=== PATIENT | male | born 1985 | race Caucasian/White ===

== ENCOUNTER → 2020-11-19 08:01 | Outpatient (BNVA) | payer SELFPAY | PROVIDERS: PCP Internal Medicine | DX: R76.11 Nonspecific reaction to tuberculin skin test without active tuberculosis (principal) ==

== ENCOUNTER 2020-12-29 10:18 | Outpatient (REF) | payer BC, SELFPAY ==
[2020-12-29 10:21] LABS: MANUAL DIFF FLAG NO
[2020-12-29 11:09] LABS: Basophils Percent Auto 0.9 % (0-2); Eosinophils Absolute Auto 0.1 X10*3/uL (0.0-0.4); Eosinophils Percent Auto 1.3 % (0-4); Hematocrit 43.1 % (42-52); Hemoglobin 14.2 g/dl (14.0-18.0); Lymphocytes Absolute Auto 1.5 X10*3/uL (1.2-4.9); Lymphocytes Percent Auto 31.5 % (20-40); Mean Corpuscular HGB Conc 32.9 g/dl (31.0-36.0); Mean Corpuscular Hemoglobin 28.8 pg (27.0-33.0); Mean Corpuscular Volume 87.4 fL (80-98); Mean Platelet Volume 8.9 fL (9.4-12.4); Monocytes Absolute Auto 0.4 X10*3/uL (0.1-1.2); Monocytes Percent Auto 9.1 % (2-11); Neutrophils Absolute Auto 2.7 X10*3/uL (2.0-8.3); Neutrophils Percent Auto 57.2 % (45-73); Platelet Count 275 X10*3/uL (160-400); Red Blood Count 4.93 X10*6/uL (4.60-5.80); Red Cell Distribution Width 12.7 % (11.0-16.0); White Blood Count 4.6 X10*3/uL (4.8-10.8)
[2020-12-29 11:34] LABS: Alanine Aminotransferase 17 U/L (0-40); Albumin Level 4.6 g/dL (3.5-5.0); Alkaline Phosphatase 47 U/L (39-117); Anion Gap 14 (12-20); Aspartate Amino Transferase 17 U/L (5-37); Bilirubin Total 0.9 mg/dL (0.0-1.0); Blood Urea Nitrogen 13 mg/dL (9-16); Calcium 9.9 mg/dL (8.4-10.2); Carbon Dioxide 28 mmol/L (22-29); Chloride 103 mmol/L (96-108); Cholesterol 154 mg/dL; Estimated Glomerular Filt Rate > 60; Glucose Fasting 78 mg/dL (60-99); HDL Cholesterol 56 mg/dL; LDL Cholesterol Calculated 85 mg/dl; Potassium 3.9 mmol/L (3.3-5.1); Sodium 141 mmol/L (135-145); Triglycerides 65 mg/dL
== END 2020-12-29 10:19 | disposition home or self-care (01) ==
LOC: HO.LNP 10:18
PROVIDERS: Visit Provider Internal Medicine
DX: Z00.00 Encounter for general adult medical examination without abnormal findings (principal)
CPT/HCPCS: 80053; 80061; 85025

== ENCOUNTER 2021-01-01 10:53 | Outpatient (REF) | payer BC, SELFPAY ==
[2021-01-01 11:53] LABS: Appearance Urine CLEAR; Color Urine YELLOW; Glucose Urine UA NEG (NEG); Leukocyte Esterase Urine NEG (NEG); Nitrite Urine NEG (NEG); PH 7.5 (5.0-8.0); Urine Blood NEG (NEG); Urine Ketones NEG (NEG); Urine Protein NEG (NEG-TRACE)
== END 2021-01-01 10:54 | disposition home or self-care (01) ==
LOC: HO.LNP 10:53
PROVIDERS: Visit Provider Internal Medicine
DX: Z00.00 Encounter for general adult medical examination without abnormal findings (principal)
CPT/HCPCS: 81003

== ENCOUNTER 2021-12-31 10:29 | Outpatient (REF) | payer BC, SELFPAY ==
[2021-12-31 10:33] LABS: MANUAL DIFF FLAG NO
[2021-12-31 11:52] LABS: Basophils Absolute Auto 0.1 X10*3/uL (0.0-0.2); Basophils Percent Auto 1.1 % (0-2); Eosinophils Absolute Auto 0.1 X10*3/uL (0.0-0.4); Eosinophils Percent Auto 2.1 % (0-4); Hematocrit 44.1 % (42.0-52.0); Hemoglobin 14.6 g/dl (14.0-18.0); Imm Gran Abs Auto 0.01 X10*3/uL (0.00-0.03); Imm Gran Pct Auto 0.2 % (0.0-0.4); Lymphocytes Absolute Auto 1.5 X10*3/uL (1.2-4.9); Lymphocytes Percent Auto 35.3 % (20-40); Mean Corpuscular HGB Conc 33.1 g/dl (31.0-36.0); Mean Corpuscular Hemoglobin 28.9 pg (27.0-33.0); Mean Corpuscular Volume 87.3 fL (80.0-98.0); Mean Platelet Volume 9.3 fL (9.4-12.4); Monocytes Absolute Auto 0.5 X10*3/uL (0.1-1.2); Monocytes Percent Auto 10.8 % (2-11); Neutrophils Absolute Auto 2.2 x10*3/uL (2.0-8.3); Neutrophils Percent Auto 50.5 % (45-73); Platelet Count 272 X10*3/uL (160-400); Red Blood Count 5.05 X10*6/uL (4.60-5.80); Red Cell Distribution Width 12.4 % (11.0-16.0); White Blood Count 4.4 X10*3/uL (4.8-10.8)
[2021-12-31 12:05] LABS: Alanine Aminotransferase 14 U/L (0-40); Albumin Level 4.8 g/dL (3.5-5.0); Alkaline Phosphatase 54 U/L (39-117); Anion Gap 16 (12-20); Aspartate Amino Transferase 18 U/L (5-37); Bilirubin Total 0.6 mg/dL (0.0-1.0); Blood Urea Nitrogen 20 mg/dL (9-16); Calcium 9.6 mg/dL (8.4-10.2); Carbon Dioxide 28 mmol/L (22-29); Chloride 103 mmol/L (96-108); Cholesterol 171 mg/dL; Estimated Glomerular Filt Rate > 60; Glucose Fasting 85 mg/dL (60-99); HDL Cholesterol 60 mg/dL; LDL Cholesterol Calculated 101 mg/dl; Potassium 4.9 mmol/L (3.3-5.1); Sodium 142 mmol/L (135-145); Total Protein 7.2 g/dL (6.5-8.0); Triglycerides 52 mg/dL
== END 2021-12-31 10:30 | disposition home or self-care (01) ==
LOC: HO.LNP 10:29
PROVIDERS: Visit Provider Internal Medicine
DX: Z00.00 Encounter for general adult medical examination without abnormal findings (principal)
CPT/HCPCS: 80053; 80061; 85025

== ENCOUNTER 2022-01-07 11:41 | Outpatient (REF) | payer BC, SELFPAY ==
[2022-01-07 12:17] LABS: Appearance Urine Clear; Color Urine Yellow; Glucose Urine UA Negative (Negative); Leukocyte Esterase Urine Negative (Negative); Nitrite Urine Negative (Negative); Specific Gravity - Urine 1.015 (1.005-1.025); Urine Blood Negative (Negative); Urine Ketones Negative (Negative); Urine Protein Negative (Neg-Trace)
[2022-01-07 12:20] LABS: Bacteria Urine None Seen (None Seen); Hyaline Casts Urine 0-2 /LPF (0-2); RBC Urine 0-2 /HPF (0-2); Squamous Epithelial Cell Urine 0-2 /HPF (0-2); WBC Urine 0-5 /HPF (0-5)
== END 2022-01-07 11:42 | disposition home or self-care (01) ==
LOC: HO.LNP 11:41
PROVIDERS: Visit Provider Internal Medicine
DX: Z00.00 Encounter for general adult medical examination without abnormal findings (principal)
CPT/HCPCS: 81001

== ENCOUNTER 2023-01-04 10:45 | Outpatient (REF) | payer OTHER, SELFPAY ==
[2023-01-04 10:51] LABS: MANUAL DIFF FLAG NO
[2023-01-04 11:17] LABS: Basophils Absolute Auto 0.1 X10*3/uL (0.0-0.2); Basophils Percent Auto 1.1 % (0-2); Eosinophils Absolute Auto 0.1 X10*3/uL (0.0-0.4); Hematocrit 43.1 % (42.0-52.0); Hemoglobin 14.2 g/dl (14.0-18.0); Lymphocytes Absolute Auto 1.6 X10*3/uL (1.2-4.9); Lymphocytes Percent Auto 35.1 % (20-40); Mean Corpuscular HGB Conc 32.9 g/dl (31.0-36.0); Mean Corpuscular Hemoglobin 29.3 pg (27.0-33.0); Mean Platelet Volume 9.4 fL (9.4-12.4); Monocytes Absolute Auto 0.4 X10*3/uL (0.1-1.2); Neutrophils Absolute Auto 2.4 x10*3/uL (2.0-8.3); Neutrophils Percent Auto 52.8 % (45-73); Platelet Count 283 X10*3/uL (160-400); Red Blood Count 4.84 X10*6/uL (4.60-5.80); Red Cell Distribution Width 12.7 % (11.0-16.0); White Blood Count 4.6 X10*3/uL (4.8-10.8)
[2023-01-04 11:36] LABS: Alanine Aminotransferase 19 U/L (0-40); Albumin Level 4.4 g/dL (3.5-5.0); Alkaline Phosphatase 47 U/L (39-117); Anion Gap 13 (12-20); Aspartate Amino Transferase 20 U/L (5-37); Bilirubin Total 0.5 mg/dL (0.0-1.0); Blood Urea Nitrogen 18 mg/dL (9-16); Calcium 9.5 mg/dL (8.4-10.2); Carbon Dioxide 27 mmol/L (22-29); Chloride 104 mmol/L (96-108); Cholesterol 188 mg/dL (<200); Estimated Glomerular Filt Rate > 60; Glucose Fasting 86 mg/dL (60-99); HDL Cholesterol 69 mg/dL (>40); LDL Cholesterol Calculated 109 mg/dL (<100); Potassium 4.2 mmol/L (3.3-5.1); Sodium 140 mmol/L (135-145); Triglycerides 54 mg/dL (<150)
== END 2023-01-04 10:46 | disposition home or self-care (01) ==
LOC: HO.LNP 10:45
PROVIDERS: Visit Provider Internal Medicine
DX: Z00.00 Encounter for general adult medical examination without abnormal findings (principal)
CPT/HCPCS: 80053; 80061; 85025

== ENCOUNTER 2023-01-11 11:28 | Outpatient (REF) | payer OTHER, SELFPAY ==
[2023-01-11 11:46] LABS: Appearance Urine Clear; Color Urine Yellow; Glucose Urine UA Negative (Negative); Leukocyte Esterase Urine Negative (Negative); Nitrite Urine Negative (Negative); PH 6.5 (5.0-9.0); Urine Blood Negative (Negative); Urine Ketones Negative (Negative); Urine Protein Negative (Neg-Trace)
== END 2023-01-11 11:29 | disposition home or self-care (01) ==
LOC: HO.LNP 11:28
PROVIDERS: Visit Provider Internal Medicine
DX: Z00.00 Encounter for general adult medical examination without abnormal findings (principal)
CPT/HCPCS: 81003

== ENCOUNTER 2024-01-09 11:58 | Outpatient (REF) | payer OTHER, SELFPAY ==
[2024-01-09 12:05] LABS: MANUAL DIFF FLAG NO
[2024-01-09 12:14] LABS: Basophils Percent Auto 0.7 % (0-2); Eosinophils Absolute Auto 0.2 X10*3/uL (0.0-0.4); Eosinophils Percent Auto 3.4 % (0-4); Hematocrit 44.2 % (42.0-52.0); Hemoglobin 14.6 g/dl (14.0-18.0); Imm Gran Abs Auto 0.01 X10*3/uL (0.00-0.03); Imm Gran Pct Auto 0.2 % (0.0-0.4); Lymphocytes Absolute Auto 1.8 X10*3/uL (1.2-4.9); Lymphocytes Percent Auto 40.9 % (20-40); Mean Corpuscular Hemoglobin 29.4 pg (27.0-33.0); Mean Corpuscular Volume 89.1 fL (80.0-98.0); Monocytes Absolute Auto 0.5 X10*3/uL (0.1-1.2); Monocytes Percent Auto 10.8 % (2-11); Platelet Count 254 X10*3/uL (160-400); Red Blood Count 4.96 X10*6/uL (4.60-5.80); Red Cell Distribution Width 12.5 % (11.0-16.0); White Blood Count 4.4 X10*3/uL (4.8-10.8)
[2024-01-09 12:30] LABS: Alanine Aminotransferase 25 U/L (0-40); Albumin Level 4.4 g/dL (3.5-5.0); Alkaline Phosphatase 54 U/L (39-117); Anion Gap 11 (12-20); Aspartate Amino Transferase 31 U/L (5-37); Bilirubin Total 0.7 mg/dL (0.0-1.0); Blood Urea Nitrogen 18 mg/dL (9-16); Calcium 9.7 mg/dL (8.4-10.2); Carbon Dioxide 27 mmol/L (22-29); Chloride 103 mmol/L (96-108); Cholesterol 171 mg/dL (<200); Estimated Glomerular Filt Rate > 60; Glucose Fasting 80 mg/dL (60-99); HDL Cholesterol 68 mg/dL (>40); LDL Cholesterol Calculated 94 mg/dL (<100); Potassium 4.3 mmol/L (3.3-5.1); Sodium 137 mmol/L (135-145); Triglycerides 48 mg/dL (<150)
== END 2024-01-09 11:59 | disposition home or self-care (01) ==
LOC: HO.LNP 11:58
PROVIDERS: Visit Provider Internal Medicine
DX: Z00.00 Encounter for general adult medical examination without abnormal findings (principal)
CPT/HCPCS: 80053; 80061; 85025

== ENCOUNTER 2024-01-16 11:23 | Outpatient (REF) | payer OTHER, SELFPAY ==
[2024-01-16 11:56] LABS: Appearance Urine Clear; Color Urine Yellow; Glucose Urine UA Negative (Negative); Leukocyte Esterase Urine Negative (Negative); Nitrite Urine Negative (Negative); Specific Gravity - Urine 1.025 (1.005-1.025); Urine Blood Negative (Negative); Urine Ketones Negative (Negative); Urine Protein Negative (Neg-Trace)
[2024-01-16 12:01] LABS: Bacteria Urine None Seen (None Seen); Hyaline Casts Urine 0-2 /LPF (0-2); RBC Urine 0-2 /HPF (0-2); Squamous Epithelial Cell Urine 0-2 /HPF (0-2); WBC Urine 0-5 /HPF (0-5)
== END 2024-01-16 11:24 | disposition home or self-care (01) ==
LOC: HO.LNP 11:23
PROVIDERS: Visit Provider Internal Medicine
DX: Z00.00 Encounter for general adult medical examination without abnormal findings (principal)
CPT/HCPCS: 81001

== ENCOUNTER 2024-08-25 09:45 | Outpatient (REF) | payer OTHER, SELFPAY ==
--- NOTE | ~2024-08-25 | MR_ITS ---
EXAMINATION: MR BRAIN WITHOUT CONTRAST CLINICAL INFORMATION: Weakness. COMPARISON: None available. TECHNIQUE: MRI of the brain was obtained using routine sequences without contrast. FINDINGS: No restricted diffusion. No acute intracranial hemorrhage, mass effect, midline shift, hydrocephalus or herniation. Lawson-white matter differentiation is normal. Posterior cranial fossa contents demonstrated no signal abnormality or gross masses. Flow-void signal within the main cerebral vessels is normal. Sellar/suprasellar region demonstrates no signal abnormality or masses. Craniocervical junction demonstrates normal position of the cerebellar tonsils. MR/MR head/brain wo con IMPRESSION: No acute or structural brain abnormality. Negative exam. Electronically signed by: Nader Waite MD 08/27/2024 08:04 AM EDT
--- OUTSIDE RECORDS SUMMARY | 2024-08-25 09:52 | XMS_ITS ---
Author Organization Fernando Celestin MD Address [address] [place] [phone] Care Team Providers Care Currency 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 Name Role Phone Fernando Celestin Primary Care Provider Allergies No Known Allergies Results Component Value Reference Range Notes UA ClnCatch+Micro w/rflx Cul t Reviewed date:01/16/2024 12:56:20 PM Interpretation: Performing Lab:[facility], [address] [place] [id number] Notes/Report: Urine, Clean Catch Color Urine Yellow Appearance Urine Clear PH 6.0 5.0-9.0 Glucose Urine UA Negative Negative mg/dL Urine Blood Negative Negative Specific [place] - Urine 1.025 1.005-1.025 Urine Protein Negative [...] stomach Orally Twice a day Not-Taking Nystatin 403959 UNIT/GM 1 application Ex ternally Twice a [...] Location Date Provider Diagnosis Fernando Celestin MD [address] [place] [address] [place] [phone] 01/16/2024 Fernando Celestin Annual physical exam Z00.00 [...] (ICD-10 - H02.402) referral to neurologist in [place]. 01/16/2024 Obsessive-compul sive personality disorder (ICD-10 - [...] Ptosis, left referral to neurolog ist in [place]. Obsessive-compulsive personality disorde r stable Dysthymia doing well, will con tinue current regimnt Depression screening mild depression, do ing well Other irritable bowel syndrome stable, w ill continue current regiment Referrals Referral Date Details 01/16/2024 01/16/2024, H02.402 Ptosis left, CASTRO KIRK Next Appt Details Provider Name:Fernando cardoso, 01/11/2025 07:45:00 AM, [address] [place] [address], [address], [place], [place], [phone], Provider Name:Fernando cardoso, 01/18/2025 09:30:00 AM, [address] [place] [address], [address], [place], [place], [phone], Progress Notes * Norm HONEYCUTTDOB: [birth year] (39 yo M)Acc No.[id number]:01/16/2024 Progress Notes Patient:?Tangela Norm Provider:?Fernando Celestin MD :1985???Age:38 Y???Sex:Male Ryan e:01/16/2024 Address:[address] [place] [address], [place]zy [id number] Subjective: * Chief Complaints: * ???Annual visit * HPI: ???Depression Screening:?PHQ-9?Little interest or pleasure in doing things?Not at all,?Feeling down, depressed, or hopeless?More than half the days,?Trouble falling or staying asleep, or sleeping too much?Several days,?Feeling tired or having little energy?Not at all,?Poor appetite or overeating?Not at all,?Feeling bad about yourself or that you are a failure, or have let yourself or your family down?More than half the days,?Trouble concentrating on things, such as reading the newspaper or watching television?Several days,?Moving or speaking so slowly that other people could have noticed; or the opposite, being so fidgety or restless that you have been moving around a lot more than usual?Not at all,?Thoughts that you would be better off or of hurting yourself in some way?Not at all,?Total Score?6,?Interpretation?Mild Depression.?Interpretation and Intervention?Depression Screening Findings?Positve - Review of PHQ-9 found positive for depression,?Follow-Up for Depression?: Existing condition.? patient is a 38 yo male here for yearly evaluation with review of recent labs and follow up of chronic issues.. has gotten back to working out. has been having ptosis of left eye for one year. doesn't go all the way down. comes and goes. fluctuates. sometimes. ???Communication Needs:?Communication Needs?Does the patient have a hearing impairment?No,?Does the patient have a vision impairment??Yes,?If yes, what is the vision impairment??Contact Lenses,?Does the patient have a cognition impairment??No.?SDOH Questions:?SDOH Questions?In the past year have you been worried about losing housing??No,?In the past year have you or any family members you live with been unable to get any of the following when it was really needed? Check all that apply:?None.? * ROS:?General/Constitutional:?Comments?some pressure in chest when he turns in bed.?.?Change in appetite?denies, denies.?Chills?denies, denies.?Fever?denies, denies.?Ophthalmologic:?Blurred vision?denies, denies.?Discharge?denies, denies.?Pain?denies, denies.?ENT:?Patient denies?decreased sense of smell , any loss of taste , sore throat.?Decreased hearing?denies, denies.?Sore throat?denies, denies.?Swollen glands?denies, denies.?Endocrine:?Cold intolerance?denies, denies.?Excessive thirst?denies, denies.?Heat intolerance?denies, denies.?Weight loss?denies, denies.?Respiratory:?Cough?denies, denies.?Shortness of breath at rest?denies, denies.?Shortness of breath with exertion?denies, denies.?Wheezing?denies, denies.?Cardiovascular:?Chest pain at rest?denies, denies.?Chest pain with exertion?denies, denies.?Irregular heartbeat?denies, denies.?Shortness of breath?denies, denies.?Gastrointestinal:?Abdominal pain?denies, denies.?Change in bowel habits?denies, denies.?Diarrhea?denies, denies.?Nausea?denies, denies.?Rectal bleeding?denies, denies.?Vomiting?denies , denies .?Genitourinary:?Blood in urine?denies, denies.?Difficulty urinating?denies, denies.?Frequent urination?denies, denies.?Musculoskeletal:?Patient denies?muscle aches.?Painful joints?denies, denies.?Weakness?denies, denies.?Peripheral Vascular:?Patient denies?red and blue toes.?Skin:?Dry skin?denies, denies.?Itching?denies, denies.?Denies?Mole(s),? changes in moles, new moles or any lesions of concern, changes in moles, new moles or any lesions of concern.?Denies?Photosensitivity.?Rash?denies, denies.?Neurologic:?Dizziness?denies, denies.?Fainting?denies, denies.?Headache?denies, denies.? * Medical History:? * Surgical History:? * Hospitalization/Major Diagno stic Procedure:? * Family History:?Father: vibha magana 60 yrs, healthy.?Mother: alive 59 yrs, healthy.?2 sister(s) . .? Father-Healthy Mother-Healthy mother suffers with depression no family substance abuse, No pertinent family medical history. * Social History:?Tobacco Use:?Tobacco Use/Smoking?Patient is a?nonsmoker,?Additional Findings: Tobacco Non-User?Current non-smoker, currently using no form of tobacco.?Drugs/Alcohol:?Alcohol Screen?Did you have a drink containing alcohol in the past year??No,?Points?0,?Interpretation?Negative.?Miscellaneous:?Caffeine: yes, frequency:enegy drinks 1 daily. no Children. no Exercise. Home smoke detector use: yes. Housing: renting. Marital status: single. Occupation: weeks/months/years, works part-time. Pets: none. no Travel outside of the [place]. * Medications:?TakingKlonoPIN 1 MG Tablet 1 tablet Orally once [...] in the morning Orally Once a dayNystatin 248567 UNIT/GM Cream 1 application Externally Twice a [...] the morning Orally Once a dayNot-Taking/PRN Nystatin 278153 UNIT/GM Cream 1 application Externally Twice a dayNot-Taking/PRN Ativan 1 MG Tablet 1 tablet at bedtime as needed Orally Once a dayNot-Taking/PRN Ritalin 20 MG Tablet 1 tablet on an empty stomach Orally Twice a dayNot- Taking/PRN Lotrisone 1-0.05 % Cream 1 application to affected area Externally Twice a dayMedication List reviewed and reconciled with the patient * Allergies:?N.K.D.A.yes[Aller gies Verified] Objective: * Vitals:?Ht: 70, Wt:149, BMI: 21.38, BP:92/60. * ???Past Orders: ???Lab:[facility]prehensive [place]. P chuckie Fast (Order Date - 01/09/2024) (Collection Date - 01/09/2024) ? Value Reference Range ?Sodium 137 135-145 - mmo l/L ?Bilirubin Total 0.7 0.0- 1.0 - mg/dL ?Aspartate Amino Transferase 31 5-37 - U/L ?Alanine Aminotransferase 25 0-40 - U/L ?Total Protein 7.0 6.5-8. 0 - g/dL ?Albumin Level 4.4 3.5-5. 0 - g/dL ?Alkaline Phosphatase 54 39-117 - U/L ?Potassium 4.3 3.3-5.1 - mmol/L ?Chloride 103 96-108 - mm ol/L ?Carbon Dioxide 27 22-29 - mmol/L ?Anion Gap 11 L 12-20 - ?Blood Urea Nitrogen 18 H 9-16 - mg/dL ?Creatinine 0.83 0.5-1.4 - mg/dL ?Estimated Glomerular Filt Rate > 60 - ?Glucose Fasting 80 60-9 9 - mg/dL ?Calcium 9.7 8.4-10.2 - m g/dL ???Lab:Lipid Panel (Order Da te - 01/09/2024) (Collection Date - 01/09/2024) ? Value Reference Range ?Triglycerides 48 <150 - mg/dL ?Cholesterol 171 <200 - m g/dL ?LDL Cholesterol Calculated 94 <100 - mg/dL ?HDL Cholesterol 68 >40 - mg/dL ???Lab:Complete Blood Count Auto Diff (Order Date - 01/09/2024) (Collection Date - 01/09/2024) ? Value Reference Range ?White Blood Count 4.4 L 4. 8-10.8 - X10*3/uL ?Red Blood Count 4.96 4.60 -5.80 - X10*6/uL ?Hemoglobin 14.6 14.0-18.0 - g/dl ?Hematocrit 44.2 42.0-52.0 - % ?Mean Corpuscular Volume 89.1 80.0-98.0 - fL ?Mean Corpuscular Hemoglobin 29.4 27.0-33.0 - pg ?Mean Corpuscular HGB Conc 33.0 31.0-36.0 - g/dl ?Red Cell Distribution Width 12.5 11.0-16.0 - % ?Platelet Count 254 160-4 00 - X10*3/uL ?Mean Platelet Volume 9.0 L 9.4-12.4 - fL ?Neutrophils Percent Auto 44.0 L 45-73 - % ?Imm Gran Pct Auto 0.2 0. 0-0.4 - % ?Lymphocytes Percent Auto 40.9 H 20-40 - % ?Monocytes Percent Auto 10.8 2-11 - % ?Eosinophils Percent Auto 3.4 0-4 - % ?Basophils Percent Auto 0.7 0-2 - % ?NRBC Pct Auto 0.0 0.0-0. 2 - /100WBC ?Neutrophils Absolute Auto 2.0 2.0-8.3 - x10*3/uL ?Imm Gran Abs Auto 0.01 0. 00-0.03 - X10*3/uL ?Lymphocytes Absolute Auto 1.8 1.2-4.9 - X10*3/uL ?Monocytes Absolute Auto 0.5 0.1-1.2 - X10*3/uL ?Eosinophils Absolute Auto 0.2 0.0-0.4 - X10*3/uL ?Basophils Absolute Auto 0.0 0.0-0.2 - X10*3/uL ?NRBC Abs Auto 0.000 0.0-0. 012 - X10*3/uL * Examination: ???General Examination: ?GENERAL APPEARANCE:?well developed, well nourished, in no acute distress , well developed, well nourished, in no acute distress.?HEAD:?normocephalic, atraumatic , normocephalic, atraumatic.?EYES:?pupils equal, round, reactive to light and accommodation, sclera non-icteric , pupils equal, round, reactive to light and accommodation, sclera non-icteric.?EARS:?normal , normal.?ORAL CAVITY:?mucosa moist , mucosa moist.?THROAT:?clear , clear.?NECK/THYROID:?neck supple, full range of motion, no cervical lymphadenopathy, no bruits , neck supple, full range of motion, no cervical lymphadenopathy, no bruits.?SKIN:?warm and dry, no suspicious lesions , warm and dry, no suspicious lesions.?HEART:?regular rate and rhythm, S1, S2 normal, no murmurs , regular rate and rhythm, S1, S2 normal, no murmurs.?LUNGS:?clear to auscultation bilaterally , clear to auscultation bilaterally.?ABDOMEN:?soft, nontender, nondistended, bowel sounds present, normal, no organomegaly , no masses palpable , soft, nontender, nondistended, bowel sounds present, normal, no organomegaly , no masses palpable.?RECTAL EXAM:?declined?.?MALE GENITOURINARY:?not examined , not examined.?EXTREMITIES:?no clubbing, cyanosis, or edema , no clubbing, cyanosis, or edema.?NEUROLOGIC:?nonfocal, motor strength normal upper and lower extremities, sensory exam intact , nonfocal, motor strength normal upper and lower extremities, sensory exam intact.? 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 Plan: * Treatment: 2.?Ptosis, left? Notes: referral to neurologist in [place].? Referral To:CASTRO KIRK??Neurology ?Reason:H02.402 Ptosis left 3.?Obsessive-compulsive pers onality disorder? Continue Anafranil Capsule, 25 MG, 2 capsule, Orally, Once a day.?? Notes: stable?? 4.?Dysthymia? Notes: doing well, will continue current regimnt?? 5.?Depression screening? Notes: mild depression, doing well?? 6.?Other irritable bowel syn drome? Notes: stable, will continue current regiment?? * Procedure Codes:? * * Sign off status: Completed true * Provider:?Fernando Celestin MD Date:?1 03/17/2023 Generated for Aliyai ng/Trace/eTransmitting on:?08/25/2024 09:52 AM EDT History and Physical Notes * HPI [...] patient have a vision impairmen t?: Yes ?If yes, what is the vision impairment?: Contact [...] Date Referring Provider Referred Provider Not es 01/16/2024 Fernando Celestin JOHN H02.402 P tosis left
== END 2024-08-25 09:46 | disposition home or self-care (01) ==
LOC: HO.MRI 09:45
PROVIDERS: PCP Internal Medicine; Visit Provider Internal Medicine
DX: M62.81 Muscle weakness (generalized) (principal); H02.402 Unspecified ptosis of left eyelid
CPT/HCPCS: 70551

== ENCOUNTER → 2024-08-25 09:48 | Outpatient (BNV) | payer OTHER, SELFPAY | PROVIDERS: PCP Internal Medicine; Visit Provider Radiology Diagnostic Radiology | DX: R53.1 Weakness (principal) | CPT/HCPCS: 70551 ==

== ENCOUNTER 2024-09-25 15:13 | Outpatient (REF) | payer OTHER, SELFPAY ==
--- OUTSIDE RECORDS SUMMARY | 2024-01-16 06:15 | XMS_ITS ---
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 [employer] Name Role Phone Fernando Celestin Primary Care Provider Allergies No Known Allergies Results Component Value Reference Range Notes UA ClnCatch+Micro w/rflx Cul t Reviewed date:01/16/2024 12:56:20 PM Interpretation: Performing Lab:[facility], [address] [place] [id number] Notes/Report: Urine, Clean Catch Color Urine Yellow Appearance Urine Clear PH 6.0 5.0-9.0 Glucose Urine UA Negative Negative mg/dL Urine Blood Negative Negative Specific [place] - Urine 1.025 1.005-1.025 Urine Protein Negative [...] stomach Orally Twice a day Not-Taking Nystatin 577046 UNIT/GM 1 application Ex ternally Twice a [...] Location Date Provider Diagnosis Fernando Celestin MD [address] [place] [address] [place] [phone] 01/16/2024 Fernando Celestin Annual physical exam Z00.00 [...] (ICD-10 - H02.402) [place]. 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 Obsessive-compulsive personality disorde r stable Dysthymia doing well, will con tinue current regimnt Depression screening mild depression, do ing well Other irritable bowel syndrome stable, w ill continue current regiment Referrals Referral Date Details 01/16/2024 01/16/2024, H02.402 Ptosis left, [facility]STR[facility] KIRK Next Appt Details Provider Name:Fernando cardoso, 01/11/2025 07:45:00 AM, [address] [place] [address], [address], [place], [place], [phone], Provider Name:Fernando cardoso, 01/18/2025 09:30:00 AM, [address] [place] [address], [address], [place], [place], [phone], Progress Notes * Norm HONEYCUTTDOB: [birth year] (39 yo M)Acc No.[id number]:01/16/2024 Progress Notes Patient: Jori feliNorm Provider: Reed Celestin MD :1985 A ge:38 Y S ex:Male Date:01/16/2024 Address:[address] [place] [address], [place] [id number] Subjective: * Chief Complaints: * A nnual [...] in the morning Orally Once a dayNystatin 179344 UNIT/GM Cream 1 application Externally Twice a [...] the morning Orally Once a dayNot-Taking/PRN Nystatin 119613 UNIT/GM Cream 1 application Externally Twice a [...] BP:92/60. * P ast Orders: L ab:Comprehensive [place]. Panel Fast (Order Date - 01/09/2024) (Collection [...] tosis, left Notes: [place] to [place]ist [place]. Referral To:CASTRO KIRK Neurology Reason:H02.402 Ptosis left [...] Date: 03/17/2023 Generated for Radha carbajal/Trace/Hamiltonitting on: 0 09/25/2024 04:24 PM EDT History and Physical Notes * [...]
--- NOTE | ~2024-09-25 | XR_ITS ---
EXAMINATION: XR SHOULDER 2 OR MORE VIEWS RIGHT HISTORY: STRAIN OF MUSCLE COMPARISON: There are no prior studies available for comparison. FINDINGS: Four views of the right shoulder are submitted. Osseous mineralization is normal. There is no fracture or dislocation. The glenohumeral and acromioclavicular joint spaces are preserved. The soft tissues are unremarkable. XR/XR shoulder RT min 2V IMPRESSION: Unremarkable examination of the right shoulder. Electronically signed by: Phillip Webb MD 09/25/2024 03:42 PM EDT
--- NOTE | ~2024-09-25 | XR_ITS ---
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 FINDINGS: AP and lateral views of the thoracic spine are submitted. Osseous mineralization is normal. The vertebral bodies maintain normal height and alignment without evidence of fracture or subluxation. The intervertebral disc spaces are preserved. The visualized paraspinal soft tissues are unremarkable. XR/XR thoracic spine 3V IMPRESSION: Unremarkable examination of the thoracic spine. Electronically signed by: Phillip Webb MD 09/25/2024 03:43 PM EDT
== END 2024-09-25 15:14 | disposition home or self-care (01) ==
LOC: HO.XRAY 15:13
PROVIDERS: PCP Internal Medicine; Visit Provider Nurse Practitioner Women's Health
DX: S46.011D Strain of muscle(s) and tendon(s) of the rotator cuff of right shoulder, subsequent encounter (principal); M47.814 Spondylosis without myelopathy or radiculopathy, thoracic region
CPT/HCPCS: 72072; 73030

== ENCOUNTER → 2024-09-25 15:25 | Outpatient (BNV) | payer OTHER, SELFPAY | PROVIDERS: PCP Internal Medicine; Visit Provider Radiology Diagnostic Radiology | DX: M47.814 Spondylosis without myelopathy or radiculopathy, thoracic region (principal); S46.011A Strain of muscle(s) and tendon(s) of the rotator cuff of right shoulder, initial encounter | CPT/HCPCS: 72072; 73030 ==

== ENCOUNTER 2025-01-11 10:49 | Outpatient (REF) | payer OTHER, SELFPAY ==
--- OUTSIDE RECORDS SUMMARY | 2024-01-09 04:00 | XMS_ITS ---
Author Organization Fernando Celestin MD Address [address] [place], [place] [phone] Care Team Providers Care Header Operator Name Role Phone Fernando Celestin Primary Care Provider Results Component Value Reference Range Notes Complete Blood Count Auto Di ff Reviewed date:01/09/2024 12:39:59 PM Interpretation: Performing Lab:[facility], [address] [place] [phone] Notes/Report: White Blood Count 4.4 4.8-10.8 X10*3/uL [...] NRBC Abs Auto 0.000 0.0-0.012 X10*3/uL Comprehensive [place]. Panel Fa Reviewed date:01/09/2024 06:18:45 PM Interpretation: Performing Lab:[facility], [address] [place] [phone] Notes/Report: Sodium 137 135-145 mmol/L Potassium 4.3 3.3-5.1 mmol/L Chloride 103 96-108 mmol/L Carbon Dioxide 27 22-29 mmol/L Anion Gap 11 12-20 Blood Urea Nitrogen 18 9-16 mg/dL Creatinine 0.83 0.5-1.4 mg/dL Estimated Glomerular Filt Rate > 60 NOTE: For -[place]ong[place]ian individuals, multiply the result by 1.210. Chronic [...] Panel Reviewed date:01/09/2024 12:32:42 PM Interpretation: Performing Lab:[address] [phone] Notes/Report: Triglycerides 48 <150 mg/dL Desirable Triglyceride: [...] Location Date Provider Diagnosis Fernando Celestin MD [address] [place] [address] [place] [phone] 01/09/2024 Fernando Celestin Blood tests for routine general physical examination Z00.00 Assessments Encounter Date Diagnosis (ICD Code) Assessment Notes Treatment Notes Treatment Clinical Notes Section Notes 01/09/2024 Blood tests for routine general physical examination (ICD-10 - Z00.00) Plan Of Treatment Next Appt Details Provider Name:Fernando Bales ier, 01/18/2025 09:30:00 AM, [address] [place] [address], Suite [facility], [place], [place], [phone], Progress Notes * Norm HONEYCUTTDOB: [birth year] (38 yo M)Acc No.[id number]:01/09/2024 Progress Note Patient: Norm Ro Provider: Reed Celestin MD :1985 A ge:38 Y S ex:Male Date:01/09/2024 Address:[address] [place], [place] [phone] Subjective: * Chief Complaints: * F asting labs * Medical History: * Surgical History: * Hospitalization/Major Diagno stic Procedure: * Medications: Objective: Assessment: * Assessment: 1. B lood tests for routine general physical examination - Z00.00 (Primary) Plan: * Treatment: * Procedure Codes: 3 6415 VENIPUNCT, ROUTINE* * * Sign off status: Completed true * Provider: Reed Celestin MD Date: 1 Generated for Radha carbajal/Trace/Gabe on: 12:20 PM EDT
--- OUTSIDE RECORDS SUMMARY | 2024-01-16 06:15 | XMS_ITS ---
Author Organization Fernando Celestin MD Address [address] [place] [phone] Care Team Providers Care Environmental Health And Safety Leader Name Role Phone Fernando Celestin Primary Care Provider [phone] Allergies No Known Allergies Results Component Value Reference Range Notes UA ClnCatch+Micro w/rflx Cul t Reviewed date:01/16/2024 12:56:20 PM Interpretation: Performing Lab:[facility], [address] [place] [phone] Notes/Report: Urine, Clean Catch Color Urine Yellow Appearance Urine Clear PH 6.0 5.0-9.0 Glucose Urine UA Negative Negative mg/dL Urine Blood Negative Negative Specific [place] - Urine 1.025 1.005-1.025 Urine Protein Negative [...] stomach Orally Twice a day Not-Taking Nystatin [id number] UNIT/GM 1 application Ex ternally Twice a [...] Location Date Provider Diagnosis Fernando Celestin MD [address] [place] [address] [place] [phone] 01/16/2024 Fernando Celestin Annual physical exam Z00.00 [...] (ICD-10 - H02.402) referral to neurologist in [place]. 01/16/2024 Obsessive-compul sive personality disorder (ICD-10 - [...] Ptosis, left referral to neurolog ist in [place]. Obsessive-compulsive personality disorde r stable Dysthymia doing well, will con tinue current regimnt Depression screening mild depression, do ing well Other irritable bowel syndrome stable, w ill continue current regiment Referrals Referral Date Details 01/16/2024 01/16/2024, H02.402 Ptosis left, CASTRO KIRK Next Appt Details Provider Name:Fernando Bales ier, 01/18/2025 09:30:00 AM, [address] [place] [address], [address], [place], [place], [phone], Progress Notes * Norm HONEYCUTTDOB: [birth year] (39 yo M)Acc No.[id number]:01/16/2024 Progress Notes Patient: Norm Ro Provider: Reed Celestin MD :1985 A ge:38 Y S ex:Male Date:01/16/2024 Address:[address] [place] [address], [place] [id number] Subjective: * Chief Complaints: * A nnual [...] in the morning Orally Once a dayNystatin 870271 UNIT/GM Cream 1 application Externally Twice a [...] the morning Orally Once a dayNot-Taking/PRN Nystatin 077321 UNIT/GM Cream 1 application Externally Twice a [...] BP:92/60. * P ast Orders: L ab:Comprehensive [place]. Panel Fast (Order Date - 01/09/2024) (Collection [...] tosis, left Notes: referral to neurologist in [place]. Referral To:CASTRO KIRK Neurology Reason:H02.402 Ptosis left [...] Celestin MD Date: 03/17/2023 Generated for Radha carbajal/Trace/Hamiltonitting on: 12:20 PM EDT History and Physical Notes * HPI (History [...] 01/16/2024 Fernando Celestin JOHN H02.402 P vijay left
--- OUTSIDE RECORDS SUMMARY | 2024-08-21 07:00 | XMS_ITS ---
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 Role Phone Fernando Celestin Primary [...] stomach Orally Twice a day Not-Taking Nystatin 408479 UNIT/GM 1 application Ex ternally Twice a [...] Location Date Provider Diagnosis Fernando Celestin MD [address] [place], [place] [phone] 08/21/2024 Fernando Celestin Other irritable bowel syndrome K58.8 and Shoulder injury S49.90XA Assessments Encounter Date Diagnosis (ICD Code) Assessment Notes Treatment Notes Treatment Clinical Notes Section Notes 08/21/2024 Other irritable bowel syndrome (ICD-10 - K58.8) referal to gastroenterology in [place]/ [place] [facility] 08/21/2024 Shoulder injury (ICD-10 - S49.90XA) referral to sports medicine at [facility] Plan Of Treatment Treatment Notes Assessment Notes Other irritable bowel syndrome referal t o gastroenterology in [place]/ [place] [facility] Shoulder injury referral to sports m edicine at [facility] in [place] Referrals Referral Date Details 08/21/2024 08/21/2024, shoulder injury, [facility] 08/21/2024 08/21/2024, Irritabl e bowel syndrome, SHARMILA NEAL Next Appt Details Provider Name:Fernando cardoso, 01/18/2025 09:30:00 AM, [address], [address], [place], [place], [phone], Progress Notes * Bessy HONEYCUTT: [birth year] (39 yo M)Acc No.[id number]:08/21/2024 Progress Notes Patient: Norm ZELAYA Provider: Reed Celestin MD :1985 A ge:39 Y S ex:Male Date:08/21/2024 Address:[address] [place] [address], [id number] Subjective: * Chief Complaints: * N eeds GI referral * HPI: S ymptom(s): patient is a 39 yo male, has seen neurologist about drooping eyelid. he is concerned that the medicines for ibs may be having effects on his eyelid. wants to see horticultural worker. also years ago had a severe injury [...] the morning Orally Once a day Nystatin 360085 UNIT/GM Cream 1 application Externally Twice a [...] morning Orally Once a day Not-Taking/PRN Nystatin 118982 UNIT/GM Cream 1 application Externally Twice a [...] injury Notes: referral to sports medicine at [facility] in [place] ? Referral To:[facility] [place] Physical Therapist Reason:shoulder injury * Procedure Codes: * * Sign off status: Completed true * Provider: Reed Celestin MD Date: 0 08/21/2024 Generated for Radha carbajal/Trace/Gabe on: 12:20 PM EDT History and Physical Notes * HPI (History of Present Illness) Category Sub-Category Detail Notes Category Not es Symptom(s) patient is a 39 yo male, has seen neurologist about drooping eyelid. he is concerned that the medicines for ibs may be having effects on his eyelid. wants to see horticultural worker. also years ago had a severe injury [...]
--- OUTSIDE RECORDS SUMMARY | 2024-12-27 12:30 | XMS_ITS ---
Author Organization Fernando Celestin MD Address [address] [place] [phone] Care Team Providers Care Financial Engineer Name Role Phone Fernando Celestin Primary Care Provider REASON FOR VISIT no voice Encounters Encounter Location Date Provider Diagnosis Fernando Celestin MD [address] [place] [address] [place] [phone] 12/27/2024 Fernando Celestin Plan Of Treatment Next Appt Details Provider Name:Fernando Bales ier, 01/18/2025 09:30:00 AM, [address] [place] [address], Suite [facility], [place], [place], [phone], Progress Notes * Norm MOULTONDOB: [birth year] (39 yo M)Acc No.[id number]:12/27/2024 Progress Notes Patient: Norm ZELAYA Provider: Reed Celestin MD :1985 A ge:39 Y S ex:Male Date:12/27/2024 Address:[address] [place], [place] [phone] Subjective: * Chief Complaints: * 1 . No voice. * Medical History: Objective: * Vitals: Assessment: Plan: * Treatment: * * The named appointment provid er may or may not be the originator of this progress note, and it is not deemed complete until electronically signed by the appointment provider. Sign off status: Pending * Provider: Reed Celestin MD Date: Generated for Radha carbajal/Trace/eTransmitting on: 1 12:20 PM EDT
--- OUTSIDE RECORDS SUMMARY | 2025-01-11 03:45 | XMS_ITS ---
Author Organization Fernando Celestin MD Address [address] [place], [place] [id number] Care Team Providers Care Cook Chief Name Role Phone Fernando Celestin Primary Care Provider Results Component Value Reference Range Notes Complete Blood Count Auto Di ff (Not yet reviewed by provider) Interpretation: Performing Lab:[facility], [address] [place] [phone] Notes/Report: White Blood Count 3.7 4.8-10.8 X10*3/uL [...] NRBC Abs Auto 0.000 0.0-0.012 X10*3/uL Comprehensive [place]. Panel Fa st (Not yet reviewed by provider) Interpretation: Performing Lab:[facility], [address] [place] [address] Notes/Report: Sodium 143 135-145 mmol/L Potassium 4.1 [...] Panel Reviewed date:01/11/2025 12:07:36 PM Interpretation: Performing Lab:[facility], [address] [place] [address] Notes/Report: Triglycerides 52 <150 mg/dL Desirable Triglyceride: [...] Date Provider Diagnosis Fernando Celestin MD [address] [place] [address] [address] [place] [phone] 01/11/2025 Fernando Celestin Blood tests for routine general physical examination Z00.00 and Encounter for administration of vaccine Z23 Assessments Encounter Date Diagnosis (ICD Code) Assessment Notes Treatment Notes Treatment Clinical Notes Section Notes 01/11/2025 Blood tests for routine general physical examination (ICD-10 - Z00.00) 01/11/2025 Encounter for administration of vaccine (ICD-10 - Z23) Plan Of Treatment Pending Test Test Name Order Date Complete Blood Count Auto Diff 5 Comprehensive [place]. Panel Fast 5 UA ClnCatch+Micro w/rflx Cult 01/11/2025 Next Appt Details Provider Name:Fernando Bales ier, 01/18/2025 09:30:00 AM, [address] [place] [address], Suite [facility], [place], [place], [phone], Progress Notes * Norm HONEYCUTTDOB: [birth year] (39 yo M)Acc No.[id number]:01/11/2025 Progress Note Patient: Josh ZELAYAsocorro Provider: Reed Celestin MD :1985 A ge:39 Y S ex:Male Date:01/11/2025 Address:[address] [place], [place] [phone] Subjective: * Chief Complaints: * 1 . Yearly fasting labs. * Medical History: Objective: * Vitals: Assessment: * Assessment: 1. B lood tests for routine general physical examination - Z00.00 (Primary) 2 .?Encounter for administration of vaccine - Z23 Plan: * Treatment: * Immunizations: Fluarix Quadrivalent - 150 : 0.5 mL (Dose No:1) (Route: Intramuscular) given by Stephanie Herbert , Office Staff on Left Deltoid * Procedure Codes: 9 0656 FLU VACCINE NO PRESERV 3 & >, 52721 IMMUNIZATION ADMIN * * The named appointment provid er may or may not be the originator of this progress note, and it is not deemed complete until electronically signed by the appointment provider. Sign off status: Pending * Provider: Reed Celestin MD Date: Generated for Radha carbajal/Trace/Hamiltonitting on: 12:20 PM EDT
[2025-01-11 10:56] LABS: MANUAL DIFF FLAG NO
[2025-01-11 11:18] LABS: Hematocrit 43.2 % (42.0-52.0); Hemoglobin 13.9 g/dl (14.0-18.0); Imm Gran Abs Auto 0.01 X10*3/uL (0.00-0.03); Imm Gran Pct Auto 0.3 % (0.0-0.4); Lymphocytes Absolute Auto 1.3 X10*3/uL (1.2-4.9); Mean Corpuscular HGB Conc 32.2 g/dl (31.0-36.0); Mean Corpuscular Hemoglobin 28.7 pg (27.0-33.0); Mean Corpuscular Volume 89.3 fL (80.0-98.0); NRBC Abs Auto 0.000 X10*3/uL (0.0-0.012); NRBC Pct Auto 0.0 /100WBC (0.0-0.2); Platelet Count 261 X10*3/uL (160-400); Red Blood Count 4.84 X10*6/uL (4.60-5.80); White Blood Count 3.7 X10*3/uL (4.8-10.8)
[2025-01-11 11:42] LABS: Alanine Aminotransferase 20 U/L (0-40); Albumin Level 4.7 g/dL (3.5-5.0); Alkaline Phosphatase 48 U/L (39-117); Anion Gap 12 (12-20); Aspartate Amino Transferase 20 U/L (5-37); Blood Urea Nitrogen 18 mg/dL (9-16); Calcium 9.4 mg/dL (8.4-10.2); Carbon Dioxide 27 mmol/L (22-29); Chloride 108 mmol/L (96-108); Cholesterol 179 mg/dL (<200); Estimated Glomerular Filt Rate > 60; HDL Cholesterol 59 mg/dL (>40); Potassium 4.1 mmol/L (3.3-5.1); Sodium 143 mmol/L (135-145); Total Protein 7.0 g/dL (6.5-8.0); Triglycerides 52 mg/dL (<150)
--- OUTSIDE RECORDS SUMMARY | 2025-01-11 12:20 | XMS_ITS | Clinical Summary ---
Author Organization [facility] Address [address] [place] [address] Phone Care Team Providers Care Exchange Trouble Shooter Name Role Phone Pcp, Unknown Primary Care Provider Unavailabl e Social History Tobacco Use Types Packs/Day Years Used Date Smoking Tobacco: Never Assessed Education Answer Date Recorded Are you interested in more education? Not on jose e 06/21/2024 Are you concerned about learning? Not on file 06/21/2024 No 06/21/2024 No 06/21/2024 Digital Access Answer Date Recorded No 06/21/2024 No 06/21/2024 Reliable internet access at home? Not on file 06/21/2024 Device with a working camera? Not on file Sex and Gender Information Value Date Recorded Sex Assigned at Not on file Legal Sex Male 9:04 AM EDT Gender Identity Not on file Sexual Orientation Not on file Plan of Treatment Upcoming Encounters Date Type Department Care Team ([facility] st Contact Info) Description 04/15/2025 8:15 AM EST Office Visit [facility] [address] [place] [address] Unknown, Unknown, Gena Villafana, HISTOLOGY TECH [address] [place] [phone] [email or web address] Health Maintenance Due Date Last Done Comments Adult Td,Tdap Booster 1985 LIPID PANEL 1985 DEPRESSION SCREENING 1998 SMOKING Hx and SMOKELESS TOB ACCO SCREENING 1999 HEPATITIS C SCREENING 01/18/2004 HIV ONE-TIME SCREENING (18-6 5 YEARS) 01/18/2004 INFLUENZA VACCINE (#1) 2024 COVID-19 VACCINE (2024-2 6 season) 2024 HEPATITIS A VACCINES Aged Out No long er eligible based on patient's age to complete this topic HIB VACCINES Aged Out No longer eligi ble based on patient's age to complete this topic MENINGOCOCCAL VACCINES (ACWY) Aged Out No longer eligible based on patient's age to complete this topic MENINGOCOCCAL VACCINES (B) Aged Out N o longer eligible based on patient's age to complete this topic PNEUMOCOCCAL VACCINES (0-49 years) Aged Out No longer eligible based on patient's age to complete this topic Medical Devices Not on file Insurance [facility] NON NSPG PCP SILVER CLARITY CONNECTORCARE [facility] NON NSPG PCP SILVER CLARITY CONNECTORCARE [facility] NON NSPG PCP SILVER CLARITY CONNECTORCARE [employer] NON NSPG PCP SILVER CLARITY CONNECTORCARE [employer] NON NSPG PCP SILVER CLARITY CONNECTORCARE [employer] NON NSPG PCP S[place] CLARITY CONNECTORCARE [place] [id number] Care Teams Exchange Trouble Shooter Relationship Specialty Start Date End Date Pcp, Unknown PCP - General 10/08/21 Additional Source Comments The information contained in this document represents components of the legal health record. It is not the complete legal health record.[facility]
--- OUTSIDE RECORDS SUMMARY | 2025-01-11 12:20 | XMS_ITS | Patient Health Record ---
Author Organization Fernando Celestin MD Address [address] [place], [place] [id number] Care Team Providers Care Front Elevator Operator Name Role Phone Fernando Celestin Primary Care Provider Allergies No Known Allergies Results Component Value Reference Range Notes UA ClnCatch+Micro w/rflx Cul t Reviewed date:01/16/2024 12:56:20 PM Interpretation: Performing Lab:[facility], [address] [place] [phone] Notes/Report: Urine, Clean Catch Color Urine Yellow Appearance Urine Clear PH 6.0 5.0-9.0 Glucose Urine UA Negative Negative mg/dL Urine Blood Negative Negative Specific [place] - Urine 1.025 1.005-1.025 Urine Protein Negative Neg-Trace mg/dL Urine Ketones Negative Negative mg/dL Nitrite Urine Negative Negative Leukocyte Esterase Urine Negative Negative RBC Urine 0-2 0-2 /HPF WBC Urine 0-5 0-5 /HPF Squamous Epithelial Cell Urine 0-2 0-2 /HPF Bacteria Urine None Seen None Seen Hyaline Casts Urine 0-2 0-2 /LPF MR head/brain wo con Reviewed date:08/27/2024 12:44:19 PM Interpretation: Performing Lab: Notes/Report: [address] [address] Magnetic Resonance Report Signed Patient: Norm Honeycutt MR#: [id number] : 1985 Acct:[id number] Age/Sex: 39 / M ADM Date: 08/25/24 Loc: HO.MRI Attending Dr: Castro Kirk MD Ordering Physician: Castro Kirk MD Date of Service: 08/25/24 Procedure(s): MR head/brain wo con Accession Number(s): [id number] cc: Fernando Celestin MD; Castro Kirk MD EXAMINATION: MR BRAIN WITHOUT CONTRAST CLINICAL INFORMATION: Weakness. COMPARISON: None available. TECHNIQUE: MRI of the brain was obtained using routine sequences without contrast. FINDINGS: No restricted diffusion. No acute intracranial hemorrhage, mass effect, midline shift, hydrocephalus or herniation. Lawson-white matter differentiation is normal. Posterior cranial fossa contents demonstrated no signal abnormality or gross masses. Flow-void signal within the main cerebral vessels is normal. Sellar/suprasellar region demonstrates no signal abnormality or masses. Craniocervical junction demonstrates normal position of the cerebellar tonsils. MR/MR head/brain wo con IMPRESSION: No acute or structural brain abnormality. Negative exam. Electronically signed by: Nader Waite MD 08/27/2024 08:04 AM EDT RP Dictated By: Nader Dao MD Signed By: <Electronically signed by Nader Man MD in OV> 08/27/24 0804 DD/ 0948 TD/TT: 08/25/24 [address]: [place] [address] Magnetic Resonance Report Signed Patient: Moises Honeycutt MR#: [id number] : 1985 Acct:[id number] Age/Sex: 39 / M ADM Date: 08/25/24 Loc: HO.MRI Attending Dr: Castro Kirk MD Ordering Physician: Castro Kirk MD Date of Service: 08/25/24 Procedure(s): MR head/brain wo con Accession Number(s): [id number] cc: Fernando Celestin MD; Castro Kirk MD EXAMINATION: MR BRAIN WITHOUT CONTRAST CLINICAL INFORMATION: Weakness. COMPARISON: None available. TECHNIQUE: MRI of the brain was obtained using routine sequences without contrast. FINDINGS: No restricted diffusion. No acute intracrania l hemorrhage, mass effect, midline shift, hydrocephalus or herniation. Lawson-white matter differentiation is normal. Posterior cranial fo ssa contents demonstrated no signal abnormality or gross masses. Flow-void signal wit hin the main cerebral vessels is normal. Sellar/suprasellar r egion demonstrates no signal abnormality or masses. Craniocervical junct ion demonstrates normal position of the cerebellar tonsils. M R/MR head/brain wo con IMPRESSION: No acute or structur al brain abnormality. Negative exam. Electronically ce d by: Nader Waite MD 08/27/2024 08:04 AM EDT RP Dictated By: Nader Dickinson MD Signed By: <Electronically signed by Nader Man MD in OV> 08/27/24 0804 DD/ 0948 TD/TT: 08/25/24 [address]: XR shoulder RT min 2V Reviewed date:09/25/2024 05:11:30 PM Interpretation: Performing Lab: Notes/Report: [address] [address] XRay Report Signed Patient: Norm Honeycutt MR#: [id number] : 1985 Acct:[id number] Age/Sex: 39 / M ADM Date: 09/25/24 Loc: HO.LAURA Attending Dr: Deepa Mercado NP Ordering Physician: Deepa Mercado NP Date of Service: 09/25/24 Procedure(s): XR shoulder RT min 2V Accession Number(s): [id number] cc: Fernando Celestin MD; Deepa Mercado NP EXAMINATION: XR SHOULDER 2 OR MORE VIEWS RIGHT HISTORY: STRAIN OF MUSCLE COMPARISON: There are no prior studies available for comparison. FINDINGS: Four views of the right shoulder are submitted. Osseous mineralization is normal. There is no fracture or dislocation. The glenohumeral and acromioclavicular joint spaces are preserved. The soft tissues are unremarkable. XR/XR shoulder RT min 2V IMPRESSION: Unremarkable examination of the right shoulder. Electronically signed by: Phillip [place] MD 09/25/2024 03:42 PM EDT RP Dictated By: Phillip [place] MD Signed By: <Electronically signed by Phillip [place] MD in OV> 09/25/24 1542 DD/ 1525 TD/TT: 09/25/24 [address]: [address] [address] XRay Report Signed Patient: Moises Honeycutt MR#: [id number] : 1985 Acct:[id number] Age/Sex: 39 / M ADM Date: 09/25/24 Loc: [facility] Attending Dr: Deepa Mercado LADLE POURER Ordering Physician: Deepa Mercado NP Date of Service: 09/25/24 Procedure(s): XR brandon ulder RT min 2V Accession Number(s): [id number] cc: Fernando Celestin MD; Deepa Mercado NP EXAMINATION: XR SHOU LDER 2 OR MORE VIEWS RIGHT HISTORY: STRAIN OF MUSCLE COMPARISON: There ar e no prior studies available for comparison. FINDINGS: [facility]. Osseous mineralization is normal. There is no fracture or dislocation. The glenohumeral and acromioclavicular ki int spaces are preserved. The soft tissues are unremarkable. X R/XR shoulder RT min 2V IMPRESSION: Unremarkable examina tion of the right shoulder. Electronically ce d by: Phillip [place] MD 09/25/2024 03:42 PM EDT Dictated By: Phillip [place] MD Signed By: <Electronically signed by Phillip [place] MD in OV> 09/25/24 1542 DD/ 1525 TD/TT: 09/25/24 [address]: XR thoracic spine 3V Reviewed date:09/25/2024 05:03:56 PM Interpretation: Performing Lab: Notes/Report: [address] [address] XRay Report Signed Patient: Norm Honeycutt MR#: [id number] : 1985 Acct:[id number] Age/Sex: 39 / M ADM Date: 09/25/24 Loc: [facility] Attending Dr: Deepa Mercado LADLE POURER Ordering Physician: Deepa Mercado NP Date of Service: 09/25/24 Procedure(s): XR thoracic spine 3V Accession Number(s): [id number] cc: Fernando Celestin MD; Deepa Mercado NP 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 FINDINGS: AP and lateral views of the thoracic spine are submitted. Osseous mineralization is normal. The vertebral bodies maintain normal height and alignment without evidence of fracture or subluxation. The intervertebral disc spaces are preserved. The visualized paraspinal soft tissues are unremarkable. XR/XR thoracic spine 3V IMPRESSION: Unremarkable examination of the thoracic spine. Electronically signed by: Phillip [place] MD 09/25/2024 03:43 PM EDT RP Dictated By: Phillip [place] MD Signed By: <Electronically signed by Phillip [place] MD in OV> 09/25/24 1543 DD/ 1525 TD/TT: 09/25/24 [address]: [place] [address] XRay Report Signed Patient: Moises Honeycutt MR#: [id number] : 1985 Acct:[id number] Age/Sex: 39 / M ADM Date: 09/25/24 Loc: HO.[facility]FF[facility] Attending Dr: Deepa Mercado NP Ordering Physician: Deepa Mercado NP Date of Service: 09/25/24 Procedure(s): XR tho racic spine 3V Accession Number(s): [id number] cc: Fernando Celestin MD; Deepa Mercado NP EXAMINATION: XR THOR ACIC SPINE 3 VIEWS HISTORY: SPONDYLOSIS W/O MYELOPATHY OF RADICULOPATHY THORACIC REGION COMPARISON: There ar e no prior studies available for comparison. FINDINGS: AP and lat eral views of the thoracic spine are submitted. Osseous mineralizati on is normal. The vertebral bodies maintain normal height and alignment without evidence of fracture or subluxation. The intervertebral disc spaces are preserved. The visualized paraspinal soft tissues are unremarkable. X R/XR thoracic spine 3V IMPRESSION: Unremarkable examina tion of the thoracic spine. Electronically ce d by: Phillip [place] MD 09/25/2024 03:43 PM EDT Dictated By: Phillip [place] MD Signed By: <Electronically signed by Phillip [place] MD in OV> 09/25/24 1543 DD/ 1525 TD/TT: 09/25/24 [address]: Ree Morris Reviewed date:01/11/2025 11:28:46 AM Interpretation: Performing Lab:[facility], [address] [place] [phone] Notes/Report: Ree Morris See Note Specimen held untested for 24 hours; Call to request Chemistry testing. Complete Blood Count Auto Di ff (Not yet reviewed by provider) Interpretation: Performing Lab:[facility], [address] [place] [phone] Notes/Report: White Blood Count 3.7 4.8-10.8 X10*3/uL [...] 0.0-0.2 /100WBC Neutrophils Absolute Auto 2.0 2.0-8.3 x10*3/uL Imm Gran Abs Auto 0.01 0.00-0.03 X10*3/uL Lymphocytes Absolute Auto 1.3 1.2-4.9 X10*3/uL Monocytes Absolute Auto 0.4 0.1-1.2 X10*3/uL Eosinophils Absolute Auto 0.1 0.0-0.4 X10*3/uL Basophils Absolute Auto 0.0 0.0-0.2 X10*3/uL NRBC Abs Auto 0.000 0.0-0.012 X10*3/uL Comprehensive [place]. Panel Fa st (Not yet reviewed by provider) Interpretation: Performing Lab:[facility], [address] [place] [address] Notes/Report: Sodium 143 135-145 mmol/L Potassium 4.1 [...] Panel Reviewed date:01/11/2025 12:07:36 PM Interpretation: Performing Lab:[facility], [address] [place] [phone] Notes/Report: Triglycerides 52 <150 mg/dL Desirable Triglyceride: [...] low results in patients with liver disease. Reason For Referral Reason H02.402 Ptosis left Diagnosis 1 Ptosis, left (H02.40 2) Referral Organization Fernando Celestin MD Referring Provider First Name Fernando Referring Provider Last Name Fawad Referring Provider Speciality Internal edicine Referred Provider CASTRO KIRK Referred Provider Specialty Neurology General Notes Muriel Monaco 01:41:38 PM EST > info faxed Carlos Enrique Annette 01/31/2024 12:44:13 PM EST > info mailed to patient Referral Priority Routine Referral Appointment Date 03/16/2024 Reason shoulder injury Diagnosis 1 Shoulder injury (S49 .90XA) Referral Organization Fernando Celestin MD Referring Provider First Name Fernando Referring Provider Last Name Fawad Referring Provider Speciality Internal edicine Referred Provider [facility] Referred Provider Specialty Physical The rapist General Notes Muriel Monaco 0 08/21/2024 11:54:04 AM >info faxed Referral Priority Routine Reason Irritable bowel synd avelino Diagnosis 1 Other irritable kareem l syndrome (K58.8) Referral Organization Fernando Celestin MD Referring Provider First Name Fernando Referring Provider Last Name Fawad Referring Provider Speciality Internal edicine Referred Provider SHARMILA NEAL Referred Provider Specialty Gastroentero logy General Notes Muriel Monaco 0 08/21/2024 11:54:28 AM >info faxedCarlos Enrique Annette 09/18/2024 08:57:11 AM >was told patient is aware of appt Referral Priority Routine Referral Appointment Date 11/19/2024 Medications Medication SIG (Take, Route, Frequency, Duration) Notes Start Date End Date Status KlonoPIN 1 MG 1 tablet Orally once a day Active Lotrisone 1-0.05 % 1 application to affected area Externally Twice a day for 14 days 02/22/2014 Not-Taki ng Ritalin 20 MG 1 tablet on an empty stomach Orally Twice a day Not-Taking Nystatin 444979 UNIT/GM 1 application Ex ternally Twice a day for 10 days 07/31/2021 Not-Taki ng Ativan 1 MG 1 tablet at bedtime as needed Orally Once a day Not-Jose ing Omeprazole 20 MG 1 capsule Orally Onc e a day for 30 day(s) Not-Taking Wellbutrin SR 100 MG 1 tablet in the mor enriqueta Orally Once a day for 30 day(s) Not-Taking Hyoscyamine Sulfate ER 0.375 MG TAKE 1 TABLET BY MOUTH EVERY 12 HOURS for 30 Active Anafranil 25 MG 1 capsule Orally Onc e a day Active Immunizations Vaccine Route Administration Date Status Comme nts TDaP IM Intramuscular 09/27/2011 Administered Flu Vaccine Unknown 01/24/2013 Administered [facility] Fluarix Quadrivalent IM Intramuscular 01/10/2020 Administe red Fluarix Quadrivalent IM Intramuscular 12/29/2020 Administe red SARS-COV-2 Moderna Unknown 07/02/2020 Administered SARS-COV-2 Moderna Unknown 07/31/2020 Administered Fluarix Quadrivalent IM Intramuscular 12/31/2021 Administe red Fluarix Quadrivalent IM Intramuscular 01/04/2023 Administe red Fluarix Quadrivalent - 150 IM Intramuscular 01/11/2025 Administered Fluarix Quadrivalent Unknown 07/11/2018 Refused Social History Tobacco Use: Social History Observation [...] ast year? 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 Problem 28460316 Dysthymia (F34.1) Active confirmed Problem 40715037 Other irritable bowel syndrome (K58.8) Active confirmed Vital Signs Blood pressure diastolic 60 mm Hg 08/21/2024 sarah ght is up 5 pounds since 01-16-24 Height 70 in 08/21/2024 weight is up 5 pounds since 01-16-24 Blood pressure systolic 98 mm Hg 08/21/2024 weig ht is up 5 pounds since 01-16-24 Weight 154 lbs 08/21/2024 weight is up 5 pounds since 01-16-24 BMI 22.09 kg/m2 08/21/2024 weight is up 5 pounds since 01-16-24 Encounters Encounter Location Date Provider Diagnosis Fernando Celestin MD [address] [place] [phone] 01/11/2025 Fernando Celestin Blood tests for routine general physical examination Z00.00 and Encounter for administration of vaccine Z23 Fernando Celestin MD [address] [place] [phone] 01/16/2024 Fernando Celestin Annual physical exam Z00.00 ; Ptosis, left H02.402 ; Obsessive-compulsive personality disorder F60.5 ; Dysthymia F34.1 ; Depression screening Z13.31 and Other irritable bowel syndrome K58.8 Fernando Celestin MD [address] [place] [phone] 08/21/2024 Fernando Celestin Other irritable kareem l syndrome K58.8 and Shoulder injury S49.90XA Assessments Encounter Date Diagnosis (ICD Code) Assessment Notes Treatment Notes Treatment Clinical Notes Section Notes 01/11/2025 Blood tests for routine general physical examination (ICD-10 - Z00.00) 01/11/2025 Encounter for administration of vaccine (ICD-10 - Z23) 01/16/2024 Annual physical exam (ICD-10 - Z00.00) labs reviewed and discussed with patient 01/16/2024 Ptosis, left (ICD-10 - H02.402) referral to neurologist in [place]. 08/21/2024 Other irritable bowel syndrome (ICD-10 - K58.8) referal to gastroenterology in [place]/ [facility] 08/21/2024 Shoulder injury (ICD-10 - S49.90XA) referral to sports medicine at [facility] in [place] 01/16/2024 Obsessive-compulsi ve personality disorder (ICD-10 - F60.5) stable 01/16/2024 Dysthymia (ICD-10 - F34.1) doing well, will continue current regimnt 01/16/2024 Depression screening (ICD-10 - Z13.31) mild depression, doing well 01/16/2024 Other irritable bowel syndrome (ICD-10 - K58.8) stable, will continue current regiment Plan Of Treatment Pending Test Test Name Order Date X ray : Hand, right 12/15/2010 Complete Blood Count Auto Diff 5 Comprehensive [place]. Panel Fast 5 UA ClnCatch+Micro w/rflx Cult 01/11/2025 Next Appt Details Provider Name:Fernando Bales ier, 01/18/2025 09:30:00 AM, [address] [place] [address], [address], [place], [place], [phone], Insurance Providers Payer Name Payer Address Payer Phone Subscriber Number Group Number Insured Name Patient Relationship to Insured Coverage Start Date Coverage End Date [facility] [address] [address] [place] [address] [id number] Norm Honeycutt Self - patient is the insured
== END 2025-01-11 10:50 | disposition home or self-care (01) ==
LOC: HO.LNP 10:49
PROVIDERS: Visit Provider Internal Medicine
DX: Z00.00 Encounter for general adult medical examination without abnormal findings (principal)
CPT/HCPCS: 80053; 80061; 85025

== ENCOUNTER 2025-01-18 11:04 | Outpatient (REF) | payer OTHER, SELFPAY ==
--- OUTSIDE RECORDS SUMMARY | 2024-01-09 03:00 | XMS_ITS ---
Author Organization Fernando Celestin MD Address [address] [place], [place] [id number] Care Team Providers Care Direct Sales Consultant Name Role Phone Fernando Celestin Primary Care Provider Results Component Value Reference Range Notes Complete Blood Count Auto Di ff Reviewed date:01/09/2024 12:39:59 PM Interpretation: Performing Lab:[facility], [address] [place] [phone] Notes/Report: White Blood Count 4.4 4.8-10.8 X10*3/uL Red Blood Count 4.96 4.60-5.80 X10*6/uL Hemoglobin 14.6 14.0-18.0 g/dl Hematocrit 44.2 42.0-52.0 % Mean Corpuscular Volume 89.1 80.0-98.0 fL Mean Corpuscular Hemoglobin 29.4 27.0-33.0 pg Mean Corpuscular HGB Conc 33.0 31.0-36.0 g/dl Red Cell Distribution Width 12.5 11.0-16.0 % Platelet Count 254 160-400 X10*3/uL Mean Platelet Volume 9.0 9.4-12.4 fL Neutrophils Percent Auto 44.0 45-73 % Imm Gran Pct Auto 0.2 0.0-0.4 % Lymphocytes Percent Auto 40.9 20-40 % Monocytes Percent Auto 10.8 2-11 % Eosinophils Percent Auto 3.4 0-4 % Basophils Percent Auto 0.7 0-2 % NRBC Pct Auto 0.0 0.0-0.2 /100WBC Neutrophils Absolute Auto 2.0 2.0-8.3 x10*3/u L Imm Gran Abs Auto 0.01 0.00-0.03 X10*3/uL Lymphocytes Absolute Auto 1.8 1.2-4.9 X10*3/u L Monocytes Absolute Auto 0.5 0.1-1.2 X10*3/uL Eosinophils Absolute Auto 0.2 0.0-0.4 X10*3/u L Basophils Absolute Auto 0.0 0.0-0.2 X10*3/uL NRBC Abs Auto 0.000 0.0-0.012 X10*3/uL Comprehensive [place]. Panel Fa Reviewed date:01/09/2024 06:18:45 PM Interpretation: Performing Lab:[facility], [address] [place] [phone] Notes/Report: Sodium 137 135-145 mmol/L Potassium 4.3 3.3-5.1 mmol/L Chloride 103 96-108 mmol/L Carbon Dioxide 27 22-29 mmol/L Anion Gap 11 12-20 Blood Urea Nitrogen 18 9-16 mg/dL Creatinine 0.83 0.5-1.4 mg/dL Estimated Glomerular Filt Rate > 60 NOTE: For -[place] individuals, multiply the result by 1.210. Chronic Kidney Disease: Estimated GFR < 60 mL/min/1.73m2 Severe Kidney Disease: Estimated GFR < 15 mL/min/1.73m2 Glucose Fasting 80 60-99 mg/dL Calcium 9.7 8.4-10.2 mg/dL Bilirubin Total 0.7 0.0-1.0 mg/dL Aspartate Amino Transferase 31 5-37 U/L Alanine Aminotransferase 25 0-40 U/L Total Protein 7.0 6.5-8.0 g/dL Albumin Level 4.4 3.5-5.0 g/dL Alkaline Phosphatase 54 39-117 U/L Lipid Panel Reviewed date:01/09/2024 12:32:42 PM Interpretation: Performing Lab:[address] [phone] Notes/Report: Triglycerides 48 <150 mg/dL Desirable Triglyceride: less than 150 mg/dL Borderline High Triglyceride 150-199 mg/dL High Triglyceride: 200-499 mg/dL Very High Triglyceride: greater than or equal to 5OO mg/dL Cholesterol 171 <200 mg/dL Desirable Cholesterol: less than 200 mg/dL Borderline High Cholesterol: 200-239 mg/dL High Cholesterol: greater than 239 mg/dL LDL Cholesterol Calculated 94 <100 mg/dL Desirable LDL: less than 100 mg/dL Near Optimal/Above Optimal LDL: 110-129 mg/dL Borderline High LDL: 130-159 mg/dL High LDL: 160-189 mg/dL Very High LDL: greater than or equal to 190 mg/dL HDL Cholesterol 68 >40 mg/dL Desirable HDL: greater than 40 mg/dL Note: This HDL assay may give artificially low results in patients with liver disease. REASON FOR VISIT fasting labs Encounters Encounter Location Date Provider Diagnosis Fernando Celestin MD [address] [place] [address] [place] [phone] 01/09/2024 Fernando Celestin Blood tests for routine general physical examination Z00.00 Assessments Encounter Date Diagnosis (ICD Code) Assessment Notes Treatment Notes Treatment Clinical Notes Section Notes 01/09/2024 Blood tests for routine general physical examination (ICD-10 - Z00.00) Plan Of Treatment Next Appt Details Provider Name:Fernando cardoso, 01/14/2026 07:45:00 AM, [address] [place] [address], [address], [phone], Provider Name:Fernando cardoso, 01/21/2026 10:30:00 AM, [address] [place] [address], [place] [address], [place], [place], [phone], Progress Notes * Norm HONEYCUTTDOB: [birth year] (38 yo M)Acc No.[id number]:01/09/2024 Progress Note Patient: Norm Ro Provider: Reed Celestin MD :1985 A ge:38 Y S ex:Male Date:01/09/2024 Address:[address] [place] [address], [id number] Subjective: * Chief Complaints: * F asting labs * Medical History: * Surgical History: * Hospitalization/Major Diagno stic Procedure: * Medications: Objective: Assessment: * Assessment: 1. B lood tests for routine general physical examination - Z00.00 (Primary) Plan: * Treatment: * Procedure Codes: 3 6415 VENIPUNCT, ROUTINE* * * Sign off status: Completed true * Provider: Reed Celestin MD Date: Generated for Radha carbajal/Trace/Gabe on: 03/20/2024 01:18 PM EST
--- OUTSIDE RECORDS SUMMARY | 2024-01-16 05:15 | XMS_ITS ---
Author Organization Fernando Celestin MD Address [address] [place] [phone] Care Team Providers Care Powdered Metal Supervisor Name Role Phone Fernando Celestin Primary Care Provider Allergies No Known Allergies Results Component Value Reference Range Notes UA ClnCatch+Micro w/rflx Cul t Reviewed date:01/16/2024 12:56:20 PM Interpretation: Performing Lab:[facility], [address] [place] [phone] Notes/Report: Urine, Clean Catch Color Urine Yellow Appearance Urine Clear PH 6.0 5.0-9.0 Glucose Urine UA Negative Negative mg/dL Urine Blood Negative Negative Specific [place] - Urine 1.025 1.005-1.025 Urine Protein Negative Neg-Trace mg/dL Urine Ketones Negative Negative mg/dL Nitrite Urine Negative Negative Leukocyte Esterase Urine Negative Negative RBC Urine 0-2 0-2 /HPF WBC Urine 0-5 0-5 /HPF Squamous Epithelial Cell Urine 0-2 0-2 /HPF Bacteria Urine None Seen None Seen Hyaline Casts Urine 0-2 0-2 /LPF Reason For Referral Reason H02.402 Ptosis left Diagnosis 1 Ptosis, left (H02.40 2) Referral Organization Fernando Celestin MD Referring Provider First Name Fernando Referring Provider Last Name Fawad Referring Provider Speciality Internal M edicine Referred Provider CASTRO KIRK Referred Provider Specialty Neurology General Notes Muriel Monaco 01:41:38 PM EST > info faxed , Muriel Monaco 01/31/2024 12:44:13 PM EST > info mailed to patient Referral Priority Routine Referral Appointment Date 03/16/2024 REASON FOR VISIT annual visit Medications Medication SIG (Take, Route, Frequency, Duration) Notes Start Date End Date Status Ativan 1 MG 1 tablet at bedtime as needed Orally Once a day Not-Jose ing Ritalin 20 MG 1 tablet on an empty stomach Orally Twice a day Not-Taking Nystatin 370692 UNIT/GM 1 application Ex ternally Twice a day for 10 days 07/31/2021 Not-Taknorma ng Anafranil 25 MG 2 capsule Orally Onc e a day Active Lotrisone 1-0.05 % 1 application to affected area Externally Twice a day for 14 days 02/22/2014 Not-Taki ng Hyoscyamine Sulfate ER 0.375 MG TAKE 1 TABLET BY MOUTH EVERY 12 HOURS for 30 Active Omeprazole 20 MG 1 capsule Orally Onc e a day for 30 day(s) Not-Taking Wellbutrin SR 100 MG 1 tablet in the mor enriqueta Orally Once a day for 30 day(s) Not-Taking KlonoPIN 1 MG 1 tablet Orally once a day Active Social History Tobacco Use: Social History Observation Description Date Details (start date - stop date) Never Smoker NA - NA Tobacco Use/Smoking Question Answer Notes Patient is a nonsmoker Additional Findings: Tobacco Non-User Cu rrent non-smoker, currently using no form of tobacco Alcohol Screen Question Answer Notes Did you have a drink containing alcohol in the p ast year? 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 Obsessive-compulsive personality disorde r stable Dysthymia doing well, will con tinue current regimnt Depression screening mild depression, do ing well Other irritable bowel syndrome stable, w ill continue current regiment Referrals Referral Date Details 01/16/2024 01/16/2024, H02.402 Ptosis left, CASTRO KIRK Next Appt Details Provider Name:Fernando cardoso, 01/14/2026 07:45:00 AM, [address] [place] [address], [address], [place], [place], [phone], Provider Name:Fernando cardoso, 01/21/2026 10:30:00 AM, [address] [place] [address], [address], [place], [place], [phone], Progress Notes * Norm HONEYCUTTDOB: [birth year] (39 yo M)Acc No.[id number]:01/16/2024 Progress Notes Patient: Jori feliJoshsocorro Provider: Reed Celestin MD :1985 A ge:38 Y S ex:Male Date:01/16/2024 Address:[address] [place] [address], [place] [id number] Subjective: * Chief Complaints: * A nnual visit * HPI: D epression Screening: PHQ-9 L ittle interest or pleasure in doing things N ot at all, F eeling down, depressed, or hopeless M ore than half the days, T rouble falling or staying asleep, or sleeping too much S everal days, F eeling tired or having little energy N ot at all, P oor appetite or overeating N ot at all, F eeling bad about yourself or that you are a failure, or have let yourself or your family down M ore than half the days, T rouble concentrating on things, such as reading the newspaper or watching television S ever, M oving or speaking so slowly that other people could have noticed; or the opposite, being so fidgety or restless that you have been moving around a lot more than usual N ot at all, T houghts that you would be better off or of hurting yourself in some way N ot at all, T otal Score 6 , I nterpretation M ild Depression. I nterpretation and Intervention D epression Screening Findings P ositve - Review of PHQ-9 found positive for depression, F ollow-Up for Depression : Existing condition. patient is a 38 yo male here for yearly evaluation with review of recent labs and follow up of chronic issues.. has gotten back to working out. has been having ptosis of left eye for one year. doesn't go all the way down. comes and goes. fluctuates. sometimes. C ommunication Needs: Communication Needs D oes the patient have a hearing impairment N o, D oes the patient have a vision impairment? Y es, I f yes, what is the vision impairment? C ontact Lenses, D oes the patient have a cognition impairment? N o. S MYKEL Questions: SDOH Questions I n the past year have you been worried about losing housing? N o, I n the past year have you or any family members you live with been unable to get any of the following when it was really needed? Check all that apply: N one. * ROS: G eneral/Constitutional: Comments s ome pressure in chest when he turns in bed. . C hange in appetite d enies, denies. C hills d enies, denies. F ever d enies, denies. O phthalmologic: Blurred vision d enies, denies. D ischarge d enies, denies. P ain d enies, denies. E NT: Patient denies d ecreased sense of smell , any loss of taste , sore throat. D ecreased hearing d enies, denies. S ore throat d enies, denies.?Swollen glands d enies, denies. E ndocrine: Cold intolerance d enies, denies. E xcessive thirst?denies, denies. H eat intolerance d enies, denies. W eight loss d enies, denies.? R espiratory: Cough d enies, denies. S hortness of breath at rest?denies, denies. S hortness of breath with exertion d enies, denies. W heezing d enies, denies. C ardiovascular: Chest pain at rest d enies, denies. C hest pain with exertion d enies, denies. I rregular heartbeat d enies, denies. S hortness of breath?denies, denies. G astrointestinal: Abdominal pain d enies, denies. C hange in bowel habits?denies, denies. D iarrhea d enies, denies. N ausea d enies, denies. R ectal bleeding d enies, denies. V omiting d enies , denies . G enitourinary: Blood in urine d enies, denies. D ifficulty urinating?denies, denies. F requent urination d enies, denies. M usculoskeletal: Patient denies m uscle aches. P ainful joints d enies, denies. W eakness d enies, denies. P eripheral Vascular: Patient denies r ed and blue toes. S kin: Dry skin d enies, denies. I tching d enies, denies.?Denies M ole(s), changes in moles, new moles or any lesions of concern, changes in moles, new moles or any lesions of concern. D enies P hotosensitivity. R jenny d enies, denies. N eurologic: Dizziness d enies, denies. F ainting d enies, denies. H eadache d enies, denies. * Medical History: * Surgical History: * Hospitalization/Major Diagno stic Procedure: * Family History: F ather: alive 60 yrs, healthy. M other: alive 59 yrs, healthy. 2 sister(s) . . Father-Healthy Mother-Healthy mother suffers with depression no family substance abuse, No pertinent family medical history. * Social History: T obacco Use: T obacco Use/Smoking P atient is a n onsmoker, A dditional Findings: Tobacco Non-User C urrent non-smoker, currently using no form of tobacco. D rugs/Alcohol: A lcohol Screen D id you have a drink containing alcohol in the past year? N o, P oints 0 , I nterpretation N egative. M iscellaneous: C affeine: yes, frequency:enegy drinks 1 daily. no Children. no Exercise. Home smoke detector use: yes. Housing: renting. Marital status: single. Occupation: weeks/months/years, works part-time. Pets: none. no Travel outside of the [place]. * Medications: T akingKlonoPIN 1 MG Tablet 1 tablet Orally once a dayAnafranil 25 MG Capsule 2 capsule Orally Once a dayHyoscyamine Sulfate ER 0.375 MG Tablet Extended Release 12 Hour TAKE 1 TABLET BY MOUTH EVERY 12 HOURS Taking KlonoPIN 1 MG Tablet 1 tablet Orally once a dayTaking Anafranil 25 MG Capsule 2 capsule Orally Once a dayTaking Hyoscyamine Sulfate ER 0.375 MG Tablet Extended Release 12 Hour TAKE 1 TABLET BY MOUTH EVERY 12 HOURS Not-Taking/PRNOmeprazole 20 MG Capsule Delayed Release 1 capsule Orally Once a dayWellbutrin SR 100 MG Tablet Extended Release 12 Hour 1 tablet in the morning Orally Once a dayNystatin 592294 UNIT/GM Cream 1 application Externally Twice a dayAtivan 1 MG Tablet 1 tablet at bedtime as needed Orally Once a dayRitalin 20 MG Tablet 1 tablet on an empty stomach Orally Twice a dayLotrisone 1-0.05 % Cream 1 application to affected area Externally Twice a dayMedication List reviewed and reconciled with the patientNot-Taking/PRN Omeprazole 20 MG Capsule Delayed Release 1 capsule Orally Once a dayNot-Taking/PRN Wellbutrin SR 100 MG Tablet Extended Release 12 Hour 1 tablet in the morning Orally Once a dayNot-Taking/PRN Nystatin 572359 UNIT/GM Cream 1 application Externally Twice a dayNot-Taking/PRN Ativan 1 MG Tablet 1 tablet at bedtime as needed Orally Once a dayNot-Taking/PRN Ritalin 20 MG Tablet 1 tablet on an empty stomach Orally Twice a dayNot-Taking/PRN Lotrisone 1-0.05 % Cream 1 application to affected area Externally Twice a dayMedication List reviewed and reconciled with the patient * Allergies: N .K.D.A.yes[Allergies Verified] Objective: * Vitals: H t: 70, Wt:149, BMI:21.38, BP:92/60. * P ast Orders: L ab:Comprehensive [place]. Panel Fast (Order Date - 01/09/2024) (Collection Date - 01/09/2024) Value Reference Range Sodium 137 135-145 - mmol/L Bilirubin Total 0.7 0.0-1.0 - mg/dL Aspartate Amino Transferase 31 5-37 - U/L Alanine Aminotransferase 25 0-40 - U/L Total Protein 7.0 6.5-8.0 - g/dL Albumin Level 4.4 3.5-5.0 - g/dL Alkaline Phosphatase 54 39-117 - U/L Potassium 4.3 3.3-5.1 - mmol/L Chloride 103 96-108 - mmol/L Carbon Dioxide 27 22-29 - mmol/L Anion Gap 11 L 12-20 - Blood Urea Nitrogen 18 H 9-16 - mg/dL Creatinine 0.83 0.5-1.4 - mg/dL Estimated Glomerular Filt Rate > 60 - Glucose Fasting 80 60-99 - mg/dL Calcium 9.7 8.4-10.2 - mg/dL L ab:Lipid Panel (Order Date - 01/09/2024) (Collection Date - 01/09/2024) Value Reference Range Triglycerides 48 <150 - mg/dL Cholesterol 171 <200 - mg/dL LDL Cholesterol Calculated 94 <100 - mg/dL HDL Cholesterol 68 >40 - mg/dL L ab:Complete Blood Count Auto Diff (Order Date - 01/09/2024) (Collection Date - 01/09/2024) Value Reference Range White Blood Count 4.4 L 4.8-10.8 - X10*3/uL Red Blood Count 4.96 4.60-5.80 - X10*6/uL Hemoglobin 14.6 14.0-18.0 - g/dl Hematocrit 44.2 42.0-52.0 - % Mean Corpuscular Volume 89.1 80.0-98.0 - fL Mean Corpuscular Hemoglobin 29.4 27.0-33.0 - pg Mean Corpuscular HGB Conc 33.0 31.0-36.0 - g/ dl Red Cell Distribution Width 12.5 11.0-16.0 - % Platelet Count 254 160-400 - X10*3/uL Mean Platelet Volume 9.0 L 9.4-12.4 - fL Neutrophils Percent Auto 44.0 L 45-73 - % Imm Gran Pct Auto 0.2 0.0-0.4 - % Lymphocytes Percent Auto 40.9 H 20-40 - % Monocytes Percent Auto 10.8 2-11 - % Eosinophils Percent Auto 3.4 0-4 - % Basophils Percent Auto 0.7 0-2 - % NRBC Pct Auto 0.0 0.0-0.2 - /100WBC Neutrophils Absolute Auto 2.0 2.0-8.3 - x10* 3/uL Imm Gran Abs Auto 0.01 0.00-0.03 - X10*3/uL Lymphocytes Absolute Auto 1.8 1.2-4.9 - X10* 3/uL Monocytes Absolute Auto 0.5 0.1-1.2 - X10*3/ uL Eosinophils Absolute Auto 0.2 0.0-0.4 - X10* 3/uL Basophils Absolute Auto 0.0 0.0-0.2 - X10*3/ uL NRBC Abs Auto 0.000 0.0-0.012 - X10*3/uL * Examination: G eneral Examination: GENERAL APPEARANCE: w ell developed, well nourished, in no acute distress , well developed, well nourished, in no acute distress. HEAD: n ormocephalic, atraumatic , normocephalic, atraumatic. EYES: p upils equal, round, reactive to light and accommodation, sclera non-icteric , pupils equal, round, reactive to light and accommodation, sclera non-icteric. EARS: n ormal , normal. ORAL CAVITY: m ucosa moist , mucosa moist. THROAT: c lear , clear. NECK/THYROID: n bill supple, full range of motion, no cervical lymphadenopathy, no bruits , neck supple, full range of motion, no cervical lymphadenopathy, no bruits. SKIN: w arm and dry, no suspicious lesions , warm and dry, no suspicious lesions. HEART: r egular rate and rhythm, S1, S2 normal, no murmurs , regular rate and rhythm, S1, S2 normal, no murmurs. LUNGS: c lear to auscultation bilaterally , clear to auscultation bilaterally. ABDOMEN: s oft, nontender, nondistended, bowel sounds present, normal, no organomegaly , no masses palpable , soft, nontender, nondistended, bowel sounds present, normal, no organomegaly , no masses palpable. RECTAL EXAM: d eclined . MALE GENITOURINARY: n ot examined , not examined. EXTREMITIES: n o clubbing, cyanosis, or edema , no clubbing, cyanosis, or edema. NEUROLOGIC: n onfocal, motor strength normal upper and lower extremities, sensory exam intact , nonfocal, motor strength normal upper and lower extremities, sensory exam intact. Assessment: * Assessment: 1. A nnual physical exam - Z00.00 (Primary) 2 . P tosis, left - H02.402 3 . 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 D ysthymia - F34.1 5 . D epression screening - Z13.31 6 . O ther irritable bowel syndrome - K58.8 Plan: * Treatment: 2. P tosis, left Notes: referral to neurologist in [place]. Referral To:CASTRO KIRK Neurology Reason:H02.402 Ptosis left 3. O bsessive-compulsive personality disorder Continue Anafranil Capsule, 25 MG, 2 capsule, Orally, Once a day. Notes: stable 4. D ysthymia Notes: doing well, will continue current regimnt 5. D epression screening Notes: mild depression, doing well 6. O ther irritable bowel syndrome Notes: stable, will continue current regiment * Procedure Codes: * * Sign off status: Completed true * Provider: Reed Celestin MD Date: 03/17/2023 Generated for Radha carbajal/Trace/Gabe on: 03/20/2024 01:17 PM EST History and Physical Notes * HPI (History of Present Illness) Category Sub-Category Detail Notes Category Not es Depression Screening PHQ-9 Little inte rest or pleasure in doing things: Not at all patient is a 38 yo male here for yearly evaluation with review of recent labs and follow up of chronic issues.. has gotten back to working out. has been having ptosis of left eye for one year. doesn't go all the way down. comes and goes. fluctuates. sometimes Feeling down, depressed, or hopeless: Mo re than half the days Trouble falling or staying asleep, or sl eeping too much: Several days Feeling tired or having little energy: N ot at all Poor appetite or overeating: Not at all Feeling bad about yourself o r that you are a failure, or have let yourself or your family down: More than half the days Trouble concentrating on thi ngs, such as reading the newspaper or watching television: Several days Moving or speaking so slowly that other people could have noticed; or the opposite, being so fidgety or restless that you have been moving around a lot more than usual: Not at all Thoughts that you would be b pardeep off or of hurting yourself in some way: Not at all Total Score: 6 Interpretation: Mild Depression Interpretation and Intervention Depressi on Screening Findings: Positve - Review of PHQ-9 found positive for depression Follow-Up for Depression: : Existing con dition SDOH Questions SDOH Questions In the past year have you been worried about losing housing?: No In the past year have you or any family members you live with been unable to get any of the following when it was really needed? Check all that apply:: None Communication Needs Communication Needs Does the patient have a hearing impairment: No Does the patient have a vision impairmen t?: Yes If yes, what is the vision impairment?: Contact Lenses Does the patient have a cognition impair ment?: No Examination Category Sub-Category Detail Notes Category Not es General Examination GENERAL APPEARANCE: well dev eloped, well nourished, in no acute distress , well developed, well nourished, in no acute distress HEAD: normocephalic, atrau matic , normocephalic, atraumatic EYES: pupils equal, round, reactive to light and accommodation, sclera non- icteric , pupils equal, round, reactive to light and accommodation, sclera non-icteric EARS: normal , normal THROAT: clear , clear NECK/THYROID: neck supple, full ra nge of motion, no cervical lymphadenopathy, no bruits , neck supple, full range of motion, no cervical lymphadenopathy, no bruits HEART: regular rate and rhy thm, S1, S2 normal, no murmurs , regular rate and rhythm, S1, S2 normal, no murmurs LUNGS: clear to auscultatio n bilaterally , clear to auscultation bilaterally ABDOMEN: soft, nontender, non distended, bowel sounds present, normal, no organomegaly , no masses palpable , soft, nontender, nondistended, bowel sounds present, normal, no organomegaly , no masses palpable NEUROLOGIC: nonfocal, motor stre ngth normal upper and lower extremities, sensory exam intact , nonfocal, motor strength normal upper and lower extremities, sensory exam intact SKIN: warm and dry, no horacio picious lesions , warm and dry, no suspicious lesions EXTREMITIES: no clubbing, cyanosi s, or edema , no clubbing, cyanosis, or edema MALE GENITOURINARY: not examined , not e xamined RECTAL EXAM: declined ORAL CAVITY: mucosa moist , mucos a moist Consultation Request Notes Referral Date Referring Provider Referred Provider Not zenaida 01/16/2024 Fernando Celestin JOHN H02.402 P vijay schmidt
--- OUTSIDE RECORDS SUMMARY | 2024-08-21 06:00 | XMS_ITS ---
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 Role Phone Fernando Celestin Primary Care Provider Allergies No Known Allergies Reason For Referral Reason shoulder injury Diagnosis 1 Shoulder injury (S49 .90XA) Referral Organization Fernando Celestin MD Referring Provider First Name Fernando Referring Provider Last Name Fawad Referring Provider Speciality Internal M edicine Referred Provider [facility] Referred Provider Specialty Physical The rapist General Notes Muriel Monaco 0 08/21/2024 11:54:04 AM >info faxed Referral Priority Routine Reason Irritable bowel synd avelino Diagnosis 1 Other irritable kareem l syndrome (K58.8) Referral Organization Fernando Celestin MD Referring Provider First Name Fernando Referring Provider Last Name Fawad Referring Provider Speciality Internal M edicine Referred Provider SHARMILA NEAL Referred Provider Specialty Gastroentero logy General Notes Muriel Monaco 0 08/21/2024 11:54:28 AM >info [email or web address] Enrique Annette 09/18/2024 08:57:11 AM >was told patient is aware of appt Referral Priority Routine Referral Appointment Date 11/19/2024 REASON FOR VISIT Needs GI referral Medications Medication SIG (Take, Route, Frequency, Duration) Notes Start Date End Date Status Lotrisone 1-0.05 % 1 application to affected area Externally Twice a day for 14 days 02/22/2014 Not-Taki ng Ritalin 20 MG 1 tablet on an empty stomach Orally Twice a day Not-Taking Nystatin 582657 UNIT/GM 1 application Ex ternally Twice a day for 10 days 07/31/2021 Not-Taki ng Ativan 1 MG 1 tablet at bedtime as needed Orally Once a day Not-Jose ing Wellbutrin SR 100 MG 1 tablet in the mor enriqueta Orally Once a day for 30 day(s) Not-Taking KlonoPIN 1 MG 1 tablet Orally once a day Active Omeprazole 20 MG 1 capsule Orally Onc e a day for 30 day(s) Not-Taking Hyoscyamine Sulfate ER 0.375 MG TAKE 1 TABLET BY MOUTH EVERY 12 HOURS for 30 Active Anafranil 25 MG 1 capsule Orally Onc e a day Active Vital Signs Blood pressure systolic 98 mm Hg 08/22/19 25 Blood pressure diastolic 60 mm Hg 025 Height 70 in 08/21/2024 Weight 154 lbs 08/21/2024 BMI 22.09 kg/m2 08/21/2024 weight is up 5 pounds since 01-16-24 Encounters Encounter Location Date Provider Diagnosis Fernando Celestin MD [address] [place] [address] [place] [phone] 08/21/2024 Fernando Celestin Other irritable bowel syndrome K58.8 and Shoulder injury S49.90XA Assessments Encounter Date Diagnosis (ICD Code) Assessment Notes Treatment Notes Treatment Clinical Notes Section Notes 08/21/2024 Other irritable bowel syndrome (ICD-10 - K58.8) referal to gastroenterology in [place]/ [place] [place] [facility] 08/21/2024 Shoulder injury (ICD-10 - S49.90XA) referral to sports medicine at [facility] Plan Of Treatment Treatment Notes Assessment Notes Other irritable bowel syndrome referal t o gastroenterology in [place]/ [place] [facility] Shoulder injury referral to sports m edicine at [facility] in [place] Referrals Referral Date Details 08/21/2024 08/21/2024, shoulder injury, [facility] 08/21/2024 08/21/2024, Irritabl e bowel syndrome, SHARMILA NEAL Next Appt Details Provider Name:Fernando cardoso, 01/14/2026 07:45:00 AM, [address] [place] [address], Suite [facility], [place], [place], [phone], Provider Name:Fernando cardoso, 01/21/2026 10:30:00 AM, [address] [place] [address], [address], [place], [place], [phone], Progress Notes * Norm HONEYCUTTDOB: [birth year] (39 yo M)Acc No.[id number]:08/21/2024 Progress Notes Patient: Norm ZELAYA Provider: Reed Celestin MD :1985 A ge:39 Y S ex:Male Date:08/21/2024 Address:[address] [place] [address], [id number] Subjective: * Chief Complaints: * N eeds GI referral * HPI: S ymptom(s): patient is a 39 yo male, has seen neurologist about drooping eyelid. he is concerned that the medicines for ibs may be having effects on his eyelid. wants to see trip follower. also years ago had a severe injury from working out a winged scapula. is same side of his previous injury./ feels he couldn't schedule physical therapy so is no reason to see any ortho. * ROS: G eneral/Constitutional: Denies C hills. D enies F atigue. D enies F ever. D enies H eadache. E NT: Denies S ore throat. R espiratory: Denies C ough. D enies S hortness of breath at rest. D enies S hortness of breath with exertion. G astrointestinal: Denies A bdominal pain. D enies B lood in stool.?Denies D iarrhea. D enies N ausea. * Medical History: * Surgical History: * Hospitalization/Major Diagno stic Procedure: * Medications: T akingKlonoPIN 1 MG Tablet 1 tablet Orally once a day Hyoscyamine Sulfate ER 0.375 MG Tablet Extended Release 12 Hour TAKE 1 TABLET BY MOUTH EVERY 12 HOURS Anafranil 25 MG Capsule 1 capsule Orally Once a day Taking KlonoPIN 1 MG Tablet 1 tablet Orally once a day Taking Hyoscyamine Sulfate ER 0.375 MG Tablet Extended Release 12 Hour TAKE 1 TABLET BY MOUTH EVERY 12 HOURS Taking Anafranil 25 MG Capsule 1 capsule Orally Once a day Not-Taking/PRNOmeprazole 20 MG Capsule Delayed Release 1 capsule Orally Once a day Wellbutrin SR 100 MG Tablet Extended Release 12 Hour 1 tablet in the morning Orally Once a day Nystatin 560291 UNIT/GM Cream 1 application Externally Twice a day Ativan 1 MG Tablet 1 tablet at bedtime as needed Orally Once a day Ritalin 20 MG Tablet 1 tablet on an empty stomach Orally Twice a day Lotrisone 1-0.05 % Cream 1 application to affected area Externally Twice a day Medication List reviewed and reconciled with the patientNot-Taking/PRN Omeprazole 20 MG Capsule Delayed Release 1 capsule Orally Once a day Not-Taking/PRN Wellbutrin SR 100 MG Tablet Extended Release 12 Hour 1 tablet in the morning Orally Once a day Not-Taking/PRN Nystatin 436197 UNIT/GM Cream 1 application Externally Twice a day Not-Taking/PRN Ativan 1 MG Tablet 1 tablet at bedtime as needed Orally Once a day Not-Taking/PRN Ritalin 20 MG Tablet 1 tablet on an empty stomach Orally Twice a day Not-Taking/PRN Lotrisone 1-0.05 % Cream 1 application to affected area Externally Twice a day Medication List reviewed and reconciled with the patient * Allergies: N .K.D.A.yes[Allergies Verified] Objective: * Vitals: H t: 70, Wt: 154, BMI:22.09, BP:98/60, Wt-k.85. weight is up 5 pounds since 01-16-24. * Examination: G eneral Examination: GENERAL APPEARANCE: a lert, well hydrated, in no distress.? HEAD: n ormocephalic. SKIN: g ood turgor. HEART: n o murmurs, rubs, gallops, regular rate and rhythm.? LUNGS: n o wheezes, rales, rhonchi, good air movement, clear to auscultation bilaterally. Assessment: * Assessment: 1. O ther irritable bowel syndrome - K58.8 (Primary) 2 . S houlder injury - S49.90XA Plan: * Treatment: 2. S houlder injury Notes: referral to sports medicine at [facility] in [place] ? Referral To:[facility] Physical Therapist Reason:shoulder injury * Procedure Codes: * * Sign off status: Completed true * Provider: Reed Celestin MD Date: 0 08/21/2024 Generated for Radha carbajal/Trace/eTransmitting on: 1 03/20/2024 01:18 PM EST History and Physical Notes * HPI (History of Present Illness) Category Sub-Category Detail Notes Category Not es Symptom(s) patient is a 39 yo male, has seen neurologist about drooping eyelid. he is concerned that the medicines for ibs may be having effects on his eyelid. wants to see trip follower. also years ago had a severe injury from working out a winged scapula. is same side of his previous injury./ feels he couldn't schedule physical therapy so is no reason to see any ortho Examination Category Sub-Category Detail Notes Category Not es General Examination GENERAL APPEARANCE: alert, w ell hydrated, in no distress HEAD: normocephalic HEART: no murmurs, rubs, ga llops, regular rate and rhythm LUNGS: no wheezes, rales, r honchi, good air movement, clear to auscultation bilaterally SKIN: good turgor Consultation Request Notes Referral Date Referring Provider Referred Provider Not es 08/21/2024 Fernando Celestin, [facility] 08/21/2024 Fernando Celestin DAVID Irritable bowel syndrome
--- OUTSIDE RECORDS SUMMARY | 2024-12-27 11:30 | XMS_ITS ---
Author Organization Fernando Celestin MD Address [address] [place] [phone] Care Team Providers Care Cook Chili Name Role Phone Fernando Celestin Primary Care Provider [phone] REASON FOR VISIT no voice Encounters Encounter Location Date Provider Diagnosis Fernando Celestin MD [address] [place] [address] [place] [phone] 12/27/2024 Fernando Celestin Plan Of Treatment Next Appt Details Provider Name:Fernando cardoso, 01/14/2026 07:45:00 AM, [address] [place] [address], Suite [facility], [place], [place], [phone], Provider Name:Fernando cardoso, 01/21/2026 10:30:00 AM, [address] [place] [address], [address] [place] [address], [phone], Progress Notes * Norm HONEYCUTTDOB: [birth year] (40 yo M)Acc No.[id number]:12/27/2024 Progress Notes Patient: Norm ZELAYA Provider: Reed Celestin MD :1985 A ge:39 Y S ex:Male Date:12/27/2024 Address:[address] [place] [address] [facility] Subjective: * Chief Complaints: * 1 . No voice. * Medical History: Objective: * Vitals: Assessment: Plan: * Treatment: * * The named appointment provid er may or may not be the originator of this progress note, and it is not deemed complete until electronically signed by the appointment provider. Sign off status: Pending * Provider: Reed Celestin MD Date: Generated for Radha Ying/Gabe on: 03/20/2024 01:18 PM EST
--- OUTSIDE RECORDS SUMMARY | 2025-01-11 02:45 | XMS_ITS ---
Author Organization Fernando Celestin MD Address [address] [place], [place] [phone] Care Team Providers Care Broadcast Program Director Name Role Phone Fernando Celestin Primary Care Provider Results Component Value Reference Range Notes Complete Blood Count Auto Di ff Reviewed date:01/11/2025 12:45:47 PM Interpretation: Performing Lab:[facility], [address] [place] [phone] Notes/Report: White Blood Count 3.7 4.8-10.8 X10*3/uL Red Blood Count 4.84 4.60-5.80 X10*6/uL Hemoglobin 13.9 14.0-18.0 g/dl Hematocrit 43.2 42.0-52.0 % Mean Corpuscular Volume 89.3 80.0-98.0 fL Mean Corpuscular Hemoglobin 28.7 27.0-33.0 pg Mean Corpuscular HGB Conc 32.2 31.0-36.0 g/dl Red Cell Distribution Width 12.9 11.0-16.0 % Platelet Count 261 160-400 X10*3/uL Mean Platelet Volume 9.6 9.4-12.4 fL Neutrophils Percent Auto 52.9 45-73 % Imm Gran Pct Auto 0.3 0.0-0.4 % Lymphocytes Percent Auto 34.6 20-40 % Monocytes Percent Auto 9.5 2-11 % Eosinophils Percent Auto 1.9 0-4 % Basophils Percent Auto 0.8 0-2 % NRBC Pct Auto 0.0 0.0-0.2 /100WBC Neutrophils Absolute Auto 2.0 2.0-8.3 x10*3/u L Imm Gran Abs Auto 0.01 0.00-0.03 X10*3/uL Lymphocytes Absolute Auto 1.3 1.2-4.9 X10*3/u L Monocytes Absolute Auto 0.4 0.1-1.2 X10*3/uL Eosinophils Absolute Auto 0.1 0.0-0.4 X10*3/u L Basophils Absolute Auto 0.0 0.0-0.2 X10*3/uL NRBC Abs Auto 0.000 0.0-0.012 X10*3/uL Comprehensive [place]. Panel Fa st Reviewed date:01/11/2025 04:26:16 PM Interpretation: Performing Lab:[facility], [address] [place] [phone] Notes/Report: Sodium 143 135-145 mmol/L Potassium 4.1 3.3-5.1 mmol/L Chloride 108 96-108 mmol/L Carbon Dioxide 27 22-29 mmol/L Anion Gap 12 12-20 Blood Urea Nitrogen 18 9-16 mg/dL Creatinine 0.96 0.5-1.4 mg/dL Estimated Glomerular Filt Rate > 60 Chronic Kidney Disease: Estimated GFR < 60 mL/min/1.73m2 Severe Kidney Disease: Estimated GFR < 15 mL/min/1.73m2 Glucose Fasting 92 60-99 mg/dL Calcium 9.4 8.4-10.2 mg/dL Bilirubin Total 0.5 0.0-1.0 mg/dL Aspartate Amino Transferase 20 5-37 U/L Alanine Aminotransferase 20 0-40 U/L Total Protein 7.0 6.5-8.0 g/dL Albumin Level 4.7 3.5-5.0 g/dL Alkaline Phosphatase 48 39-117 U/L Lipid Panel Reviewed date:01/11/2025 12:07:36 PM Interpretation: Performing Lab:[facility], [address] [place] [phone] Notes/Report: Triglycerides 52 <150 mg/dL Desirable Triglyceride: less than 150 mg/dL Borderline High Triglyceride 150-199 mg/dL High Triglyceride: 200-499 mg/dL Very High Triglyceride: greater than or equal to 5OO mg/dL Cholesterol 179 <200 mg/dL Desirable Cholesterol: less than 200 mg/dL Borderline High Cholesterol: 200-239 mg/dL High Cholesterol: greater than 239 mg/dL LDL Cholesterol Calculated 110 <100 mg/dL Desirable LDL: less than 100 mg/dL Near Optimal/Above Optimal LDL: 110-129 mg/dL Borderline High LDL: 130-159 mg/dL High LDL: 160-189 mg/dL Very High LDL: greater than or equal to 190 mg/dL HDL Cholesterol 59 >40 mg/dL Desirable HDL: greater than 40 mg/dL Note: This HDL assay may give artificially low results in patients with liver disease. REASON FOR VISIT yearly fasting labs Immunizations Vaccine Route Administration Date Status Comme nts Fluarix Quadrivalent - 150 IM Intramuscular 01/11/2025 Adm inistered Encounters Encounter Location Date Provider Diagnosis Fernando Celestin MD [address] [place] [address] [place] [phone] 01/11/2025 Fernando Celestin Blood tests for routine general physical examination Z00.00 and Encounter for administration of vaccine Z23 Assessments Encounter Date Diagnosis (ICD Code) Assessment Notes Treatment Notes Treatment Clinical Notes Section Notes 01/11/2025 Blood tests for routine general physical examination (ICD-10 - Z00.00) 01/11/2025 Encounter for administration of vaccine (ICD-10 - Z23) Plan Of Treatment Pending Test Test Name Order Date UA ClnCatch+Micro w/rflx Cult 01/11/2025 Next Appt Details Provider Name:Fernando cardoso, 01/14/2026 07:45:00 AM, [address] [place] [address], [address], [phone], Provider Name:Fernando cardoso, 01/21/2026 10:30:00 AM, [address] [place] [address], [place] [address], [place], [place], [phone], Progress Notes * Norm HONEYCUTTDOB: [birth year] (40 yo M)Acc No.[id number]:01/11/2025 Progress Note Patient: Josh ZELAYAsocorro Provider: Reed Celestin MD :1985 A ge:39 Y S ex:Male Date:01/11/2025 Address:[address] [place], [place] [phone] Subjective: * Chief Complaints: * 1 . Yearly fasting labs. * Medical History: Objective: * Vitals: Assessment: * Assessment: 1. E ncounter for administration of vaccine - Z23 (Primary) 2 . B lood tests for routine general physical examination - Z00.00 Plan: * Treatment: * Immunizations: Fluarix Quadrivalent - 150 : 0.5 mL (Dose No:1) (Route: Intramuscular) given by Stephanie Herbert , Office Staff on Left Deltoid * Procedure Codes: 9 0656 FLU VACCINE NO PRESERV 3 & >, [address] IMMUNIZATION ADMIN, [address] VENIPUNCT, ROUTINE* * * The named appointment provid er may or may not be the originator of this progress note, and it is not deemed complete until electronically signed by the appointment provider. Sign off status: Pending * Provider: Reed Celestin MD Date: Generated for Radha carbajal/Trace/Gabe on: 03/20/2024 01:18 PM EST
--- OUTSIDE RECORDS SUMMARY | 2025-01-18 04:30 | XMS_ITS ---
Author Organization Fernando Celestin MD Address [address] [place], [place] [id number] Care Team Providers Care Sleep Scientist Name Role Phone Fernando Celestin Primary Care Provider Allergies No Known Allergies Results Component Value Reference Range Notes Occult Blood, Stool, Guaiac Reviewed date:01/18/2025 11:38:29 AM Interpretation:Negative Performing Lab: Notes/Report: Negative Occult Blood, Stool, Guaiac Neg Complete Blood Count Auto Di ff Reviewed date:01/18/2025 12:29:05 PM Interpretation: Performing Lab:[facility], [address] [place] [phone] Notes/Report: White Blood Count 5.3 4.8-10.8 X10*3/uL Red Blood Count 4.94 4.60-5.80 X10*6/uL Hemoglobin 14.3 14.0-18.0 g/dl Hematocrit 43.4 42.0-52.0 % Mean Corpuscular Volume 87.9 80.0-98.0 fL Mean Corpuscular Hemoglobin 28.9 27.0-33.0 pg Mean Corpuscular HGB Conc 32.9 31.0-36.0 g/dl Red Cell Distribution Width 12.7 11.0-16.0 % Platelet Count 292 160-400 X10*3/uL Mean Platelet Volume 9.4 9.4-12.4 fL Neutrophils Percent Auto 50.7 45-73 % Imm Gran Pct Auto 0.2 0.0-0.4 % Lymphocytes Percent Auto 35.7 20-40 % Monocytes Percent Auto 10.4 2-11 % Eosinophils Percent Auto 1.9 0-4 % Basophils Percent Auto 1.1 0-2 % NRBC Pct Auto 0.0 0.0-0.2 /100WBC Neutrophils Absolute Auto 2.7 2.0-8.3 x10*3/u L Imm Gran Abs Auto 0.01 0.00-0.03 X10*3/uL Lymphocytes Absolute Auto 1.9 1.2-4.9 X10*3/u L Monocytes Absolute Auto 0.6 0.1-1.2 X10*3/uL Eosinophils Absolute Auto 0.1 0.0-0.4 X10*3/u L Basophils Absolute Auto 0.1 0.0-0.2 X10*3/uL NRBC Abs Auto 0.000 0.0-0.012 X10*3/uL UA ClnCatch+Micro w/rflx Cul t Reviewed date:01/18/2025 12:28:46 PM Interpretation: Performing Lab:[facility], [address] [place] [phone] Notes/Report: Urine, Clean Catch Color Urine Yellow Appearance Urine Clear PH 5.5 5.0-9.0 Glucose Urine UA Negative Negative mg/dL Urine Blood Negative Negative Specific [place] - Urine >= 1.030 1.005-1.025 Urine Protein Negative Neg-Trace mg/dL Urine Ketones Negative Negative mg/dL Nitrite Urine Negative Negative Leukocyte Esterase Urine Negative Negative RBC Urine 0-2 0-2 /HPF WBC Urine 0-5 0-5 /HPF Squamous Epithelial Cell Urine 0-2 0-2 /HPF Bacteria Urine None Seen None Seen Hyaline Casts Urine 0-2 0-2 /LPF REASON FOR VISIT annual visit, Repeat CBC Medications Medication SIG (Take, Route, Frequency, Duration) Notes Start Date End Date Status Nystatin 821397 UNIT/GM 1 application Ex ternally Twice a day for 10 days 07/31/2021 Not-Tere ng Ativan 1 MG 1 tablet at bedtime as needed Orally Once a day Not-Jose ing Ritalin 20 MG 1 tablet on an empty stomach Orally Twice a day Not-Taking traMADol HCl 50 MG 1 tablet as needed Orally at night for 20 days 01/18/2025 Active Lotrisone 1-0.05 % 1 application to affected area Externally Twice a day for 14 days 02/22/2014 Not-Tere ng KlonoPIN 1 MG 1 tablet Orally once a day Active Anafranil 25 MG 1 capsule Orally Onc e a day Not-Taking Hyoscyamine Sulfate ER 0.375 MG TAKE 1 TABLET BY MOUTH EVERY 12 HOURS for 30 Not-Taking Omeprazole 20 MG 1 capsule Orally Onc e a day for 30 day(s) Not-Taking Wellbutrin SR 100 MG 1 tablet in the mor enriqueta Orally Once a day for 30 day(s) Not-Taking Tylenol 325 MG 1 tablet as needed Orally every 6 hrs Active fluvoxaMINE Maleate 100 MG 1 tablet at bedtime Orally Once a day Active Social History Tobacco Use: [...] Interpretation Negative Vital Signs Blood pressure systolic 108 mm Hg 01/19/20 25 Blood pressure diastolic 60 mm Hg 025 Height 70 in 01/18/2025 Weight 150 lbs 01/18/2025 BMI 21.52 kg/m2 01/18/2025 weight is down 4 pounds [facility] 08-21-24 Encounters Encounter Location Date Provider Diagnosis Fernando Celestin MD [address] [place] [address] [address] [place] [phone] 01/18/2025 Fernando Celestin Adult general medical exam Z00.00 ; Dysthymia F34.1 ; Shoulder pain M25.519 ; Colon cancer screening Z12.11 and Depression screen Z13.31 Assessments Encounter Date Diagnosis (ICD Code) Assessment Notes Treatment Notes Treatment Clinical Notes Section Notes 01/18/2025 Adult general medical exam (ICD-10 - Z00.00) labs reviewed and discussed with patient 01/18/2025 Dysthymia (ICD-10 - F34.1) stable, will continue current regiment 01/18/2025 Shoulder pain (ICD-10 - M25.519) patient verbalized understabding of medication and directions for use 01/18/2025 Colon cancer screening (ICD-10 - Z12.11) guaiac negative 01/18/2025 Depression screen (ICD-10 - Z13.31) negative screen Plan Of Treatment Medication Medication Name Sig Start Date Stop Date Notes traMADol HCl 50 MG 1 tablet as needed O rally at night for 20 days 01/18/2025 Treatment Notes Assessment Notes Adult general medical exam labs reviewed and discussed with patient Dysthymia stable, will continu e current regiment Shoulder pain patient verbalized u nderstabding of medication and directions for use Colon cancer screening guaiac negative Depression screen negative screen Next Appt Details Follow Up: 1 Year, Reason: Provider Name:Fernando Bales ier, 01/14/2026 07:45:00 AM, [address] [place] [address], [address], [place], [place], [phone], Provider Name:Fernando Bales ier, 01/21/2026 10:30:00 AM, [address] [place] [address], [facility], [place], [place], [phone], Progress Notes * Norm HONEYCUTTDOB: [birth year] (40 yo M)Acc No.[id number]:01/18/2025 Progress Notes Patient: Norm ZELAYA Provider: Reed Celestin MD :1985 A ge:40 Y S ex:Male Date:01/18/2025 Address:[address] [place] [address], [id number] Subjective: * Chief Complaints: * 1 . Annual visit. 2. Repeat CBC. * HPI: C ommunication Needs: Communication Needs D oes the patient have a hearing impairment N o, D oes the patient have a vision impairment? Y es, I f yes, what is the vision impairment? G lasses, Contact Lenses, D oes the patient have a cognition impairment? N o. S MYKEL Questions: SDOH Questions I n the past year have you been worried about losing housing? N o, I n the past year have you or any family members you live with been unable to get any of the following when it was really needed? Check all that apply: N one. S ymptom(s): patient is a 40 yo male here for annual visit eith review of recent labs and follow up of chronic issues f eels as though he is not doing well. had some shoulder pain and went to pt and started to get pain in left axilla.before he got to pt to get it evaluated, was at a wedding and did a dance move that put a lot of weight on upper arm. pt wanted to get an mri of shoulder and was denied at present/ taking tylenol and afraid of taking nsaids due to risk of bleeding with his antidepressants. now the pain keeps him up at night. D epression Screening: PHQ-9 L ittle interest or pleasure in doing things N ot at all, F eeling down, depressed, or hopeless M ore than half the days, T rouble falling or staying asleep, or sleeping too much N ot at all, F eeling tired or having little energy N ot at all, P oor appetite or overeating N ot at all, F eeling bad about yourself or that you are a failure, or have let yourself or your family down M ore than half the days, T rouble concentrating on things, such as reading the newspaper or watching television M ore than half the days, M oving or speaking so slowly that [...] depression, F ollow-Up for Depression : Existing condition, P atient Lifestyle Goals P atient wants to maintain a healthy emotional balance, B arriers N o specific barriers, is motivated to feel better, works at this everyday, S elf-Managment Goals I dentify support system and speak with them about how they can help in times of need. * ROS: G eneral/Constitutional: Change in appetite d enies. C hills d enies. F ever d enies. O phthalmologic: Blurred vision d enies. D ischarge d enies. P ain d enies. E NT: Decreased hearing d enies. S ore throat d enies.?Swollen glands d enies. E ndocrine: Cold intolerance d enies. E xcessive thirst d enies. H eat intolerance d enies. W eight loss d enies. R espiratory: Cough d enies. S hortness of breath at rest d enies. S hortness of breath with exertion d enies. W heezing d enies. C ardiovascular: Chest pain at rest d enies. C hest pain with exertion?denies. I rregular heartbeat d enies. S hortness of breath d enies. ? G astrointestinal: Abdominal pain d enies. C hange in bowel habits d enies. D iarrhea d enies. N ausea d enies. R ectal bleeding d enies. V omiting d enies . G enitourinary: Blood in urine d enies. D ifficulty urinating d enies. F requent urination d enies. M usculoskeletal: Painful joints d enies. W eakness d enies. ? S kin: Dry skin d enies. I tching d enies. D enies?Mole(s), changes in moles, new moles or any lesions of concern. D enies P hotosensitivity. R jenny d enies. N eurologic: Dizziness d enies. F ainting d enies. H eadache?denies. * Medical History: M edical History Verified. * Family History: F ather: alive 60 [...] C affeine: yes, frequency:enegy drinks 1 daily. Children: no. Exercise: no. Home smoke detector use: yes. Housing: renting. Marital status: single. Occupation: weeks/months/years, works part-time. Pets: none. * Medications: T aking Tylenol 325 MG Tablet 1 tablet as needed Orally every 6 hrs , Taking fluvoxaMINE Maleate 100 MG Tablet 1 tablet at bedtime Orally Once a day , Taking KlonoPIN 1 MG Tablet 1 tablet Orally once a day , Not-Taking/PRN Anafranil 25 MG Capsule 1 capsule Orally Once a day , Not-Taking/PRN Hyoscyamine Sulfate ER 0.375 MG Tablet Extended Release 12 Hour TAKE 1 TABLET BY MOUTH EVERY 12 HOURS , Not-Taking/PRN Omeprazole 20 MG Capsule Delayed Release 1 capsule Orally Once a day , Not-Taking/PRN Wellbutrin SR 100 MG Tablet Extended Release 12 Hour 1 tablet in the morning Orally Once a day , Not-Taking/PRN Nystatin 808680 UNIT/GM Cream 1 application Externally Twice a day , Not-Taking/PRN Ativan 1 MG Tablet 1 tablet at bedtime as needed Orally Once a day , Not-Taking/PRN Ritalin 20 MG Tablet 1 tablet on an empty stomach Orally Twice a day , Not-Taking/PRN Lotrisone 1-0.05 % Cream 1 application to affected area Externally Twice a day , Medication List reviewed and reconciled with the patient * Allergies: N .K.D.A. Objective: * Vitals: H t: 70, Wt: 150, BMI:21.52, BP:108/60, Wt-k.04. weight is down 4 pounds since 08-21-24. * P ast Orders: L ab:Complete Blood Count Auto Diff (Order Date - 01/11/2025) (Collection Date & Time - 01/11/2025 07:45 AM) Value Reference Range White Blood Count 3.7 L 4.8-10.8 - X10*3/uL Red Blood Count 4.84 4.60-5.80 - X10*6/uL Hemoglobin 13.9 L 14.0-18.0 - g/dl Hematocrit 43.2 42.0-52.0 - % Mean Corpuscular Volume 89.3 80.0-98.0 - fL Mean Corpuscular Hemoglobin 28.7 27.0-33.0 - pg Mean Corpuscular HGB Conc 32.2 31.0-36.0 - g/ dl Red Cell Distribution Width 12.9 11.0-16.0 - % Platelet Count 261 160-400 - X10*3/uL Mean Platelet Volume 9.6 9.4-12.4 - fL Neutrophils Percent Auto 52.9 45-73 - % Imm Gran Pct Auto 0.3 0.0-0.4 - % Lymphocytes Percent Auto 34.6 20-40 - % Monocytes Percent Auto 9.5 2-11 - % Eosinophils Percent Auto 1.9 0-4 - % Basophils Percent Auto 0.8 0-2 - % NRBC Pct Auto 0.0 0.0-0.2 - /100WBC Neutrophils Absolute Auto 2.0 2.0-8.3 - x10* 3/uL Imm Gran Abs Auto 0.01 0.00-0.03 - X10*3/uL Lymphocytes Absolute Auto 1.3 1.2-4.9 - X10* 3/uL Monocytes Absolute Auto 0.4 0.1-1.2 - X10*3/ uL Eosinophils Absolute Auto 0.1 0.0-0.4 - X10* 3/uL Basophils Absolute Auto 0.0 0.0-0.2 - X10*3/ uL NRBC Abs Auto 0.000 0.0-0.012 - X10*3/uL L ab:Comprehensive [place]. Panel Fast (Order Date - 01/11/2025) (Collection Date & Time - 01/11/2025 07:45 AM) Value Reference Range Sodium 143 135-145 - mmol/L Bilirubin Total 0.5 0.0-1.0 - mg/dL Aspartate Amino Transferase 20 5-37 - U/L Alanine Aminotransferase 20 0-40 - U/L Total Protein 7.0 6.5-8.0 - g/dL Albumin Level 4.7 3.5-5.0 - g/dL Alkaline Phosphatase 48 39-117 - U/L Potassium 4.1 3.3-5.1 - mmol/L Chloride 108 96-108 - mmol/L Carbon Dioxide 27 22-29 - mmol/L Anion Gap 12 12-20 - Blood Urea Nitrogen 18 H 9-16 - mg/dL Creatinine 0.96 0.5-1.4 - mg/dL Estimated Glomerular Filt Rate > 60 - Glucose Fasting 92 60-99 - mg/dL Calcium 9.4 8.4-10.2 - mg/dL L ab:Lipid Panel (Order Date - 01/11/2025) (Collection Date & Time - 01/11/2025 07:45 AM) Value Reference Range Triglycerides 52 <150 - mg/dL Cholesterol 179 <200 - mg/dL LDL Cholesterol Calculated 110 H <100 - mg/dL HDL Cholesterol 59 >40 - mg/dL * Examination: G eneral Examination: GENERAL APPEARANCE: w ell developed, well nourished, in no acute distress. HEAD: n ormocephalic, atraumatic. EYES: p upils equal, round, reactive to light and accommodation, sclera non-icteric. EARS: n ormal. ORAL CAVITY: m ucosa moist. THROAT: c lear. NECK/THYROID: n bill supple, full range of motion, no cervical lymphadenopathy, no bruits. SKIN: w arm and dry, no suspicious lesions. HEART: r egular rate and rhythm, S1, S2 normal, no murmurs.? LUNGS: c lear to auscultation bilaterally. ABDOMEN: s oft, nontender, nondistended, bowel sounds present, normal, no organomegaly , no masses palpable. RECTAL EXAM: n ormal tone, no external hemorrhoids, no masses palpable, prostate normal, stool guaiac negative. MALE GENITOURINARY: n ot examined. EXTREMITIES: n o clubbing, cyanosis, or edema. NEUROLOGIC: n onfocal, motor strength normal upper and lower extremities, sensory exam intact. Assessment: * Assessment: 1. A dult general medical exam - Z00.00 (Primary) 2 . D ysthymia - F34.1? 3. S houlder pain - M25.519 4 . C olon cancer screening - Z12.11 5 . D epression screen - Z13.31 Plan: * Treatment: 2. D ysthymia Notes: stable, will continue current regiment 3. [facility] Start traMADol HCl Tablet, 50 MG, 1 tablet as needed, Orally, at night, 20 days, 20. Notes: patient verbalized understabding of medication and directions for use 4. C olon cancer screening L AB: Occult Blood, Stool, Guaiac (Collection Date & Time - 01/18/2025) N egative Value Reference Range O ccult Blood, Stool, Guaiac Neg Notes: guaiac negative??5.?Depression screen? Notes: negative screen?? * Procedure Codes: 3 6415 VENIPUNCT, ROUTINE*, 16918 TEST FOR BLOOD, FECES * Follow Up: 1 Year * * The named appointment provid er may or may not be the originator of this progress note, and it is not deemed complete until electronically signed by the appointment provider. Sign off status: Pending * Provider: Reed Celestin MD Date: 03/20/2024 Generated for Radha carbajal/Trace/Gabe on: 03/20/2024 01:18 PM EST History and Physical Notes * HPI (History of Present Illness) Category Sub-Category Detail Notes Category Not es Symptom(s) patient is a 40 yo male here for annual visit eith review of recent labs and follow up of chronic issues feels as though he is not doing well. had some shoulder pain and went to pt and started to get pain in left axilla.before he got to pt to get it evaluated, was at a wedding and did a dance move that put a lot of weight on upper arm. pt wanted to get an mri of shoulder and was denied at present/ taking tylenol and afraid of taking nsaids due to risk of bleeding with his antidepressants. now the pain keeps him up at night Depression Screening PHQ-9 Little inte rest or pleasure in doing things: Not at all Feeling down, depressed, or hopeless: Mo re than half the days Trouble falling or staying asleep, or sl eeping too much: Not at all Feeling tired or having little energy: N ot at all Poor appetite or overeating: Not at all Feeling bad about yourself o r that you are a failure, or have let yourself or your family down: More than half the days Trouble concentrating on thi ngs, such as reading the newspaper or watching television: More than half the days Moving or speaking so slowly that [...] Follow-Up for Depression: : Existing con dition Patient Lifestyle Goals: Patient wants t o maintain a healthy emotional balance Barriers: No specific barriers , is motivated to feel better, works at this everyday Self-Managment Goals: Identify support s ystem and speak with them about how they can help in times of need SDOH Questions SDOH Questions In the past [...] If yes, what is the vision impairment?: Glasses, Contact Lenses Does the patient have a cognition impair ment?: No Examination Category Sub-Category Detail Notes Category Not es General Examination GENERAL APPEARANCE: well dev eloped, well nourished, in no acute distress HEAD: normocephalic, atrau matic EYES: pupils equal, round, reactive to light and accommodation, sclera non-icteric EARS: normal THROAT: clear NECK/THYROID: neck supple, full ra nge of motion, no cervical lymphadenopathy, no bruits HEART: regular rate and rhy thm, S1, S2 normal, no murmurs LUNGS: clear to auscultatio n bilaterally ABDOMEN: soft, nontender, non distended, bowel sounds present, normal, no organomegaly , no masses palpable NEUROLOGIC: nonfocal, motor stre ngth normal upper and lower extremities, sensory exam intact SKIN: warm and dry, no horacio picious lesions EXTREMITIES: no clubbing, cyanosi s, or edema MALE GENITOURINARY: not examined RECTAL EXAM: normal tone, no exte rnal hemorrhoids, no masses palpable, prostate normal, stool guaiac negative ORAL CAVITY: mucosa moist
[2025-01-18 11:06] LABS: MANUAL DIFF FLAG NO
[2025-01-18 11:38] LABS: Appearance Urine Clear; Glucose Urine UA Negative (Negative); PH 5.5 (5.0-9.0); Specific Gravity - Urine >= 1.030 (1.005-1.025)
[2025-01-18 11:58] LABS: Hematocrit 43.4 % (42.0-52.0); Hemoglobin 14.3 g/dl (14.0-18.0); Imm Gran Abs Auto 0.01 X10*3/uL (0.00-0.03); Imm Gran Pct Auto 0.2 % (0.0-0.4); Lymphocytes Absolute Auto 1.9 X10*3/uL (1.2-4.9); Mean Corpuscular HGB Conc 32.9 g/dl (31.0-36.0); Mean Corpuscular Hemoglobin 28.9 pg (27.0-33.0); Mean Corpuscular Volume 87.9 fL (80.0-98.0); NRBC Abs Auto 0.000 X10*3/uL (0.0-0.012); NRBC Pct Auto 0.0 /100WBC (0.0-0.2); Platelet Count 292 X10*3/uL (160-400); Red Blood Count 4.94 X10*6/uL (4.60-5.80); White Blood Count 5.3 X10*3/uL (4.8-10.8)
--- OUTSIDE RECORDS SUMMARY | 2025-01-18 13:18 | XMS_ITS | Patient Health Record ---
Author Organization Fernando Celestin MD Address [address] [place] [phone] Care Team Providers Care Criminal Justice Faculty Name Role Phone Fernando Celestin Primary Care Provider Allergies No Known Allergies Results Component Value Reference Range Notes MR head/brain wo con Reviewed date:08/27/2024 12:44:19 PM Interpretation: Performing Lab: Notes/Report: [address] [address] Magnetic Resonance Report Signed Patient: Norm Honeycutt MR#: [id number] : 1985 Acct:[id number] Age/Sex: 39 / M ADM Date: 08/25/24 Loc: HO.MRI Attending Dr: Anibal Dawson MD Ordering Physician: Anibal Dawson MD Date of Service: 08/25/24 Procedure(s): MR head/brain wo con Accession Number(s): [id number] cc: Fernando Ceelstin MD; Anibal Dawson MD EXAMINATION: MR BRAIN WITHOUT CONTRAST CLINICAL [...] signed by Nader Man MD in OV> 08/27/24803 DD/ TD/TT: 08/25/24 1009 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[place] [address] Magnetic Resonance Report Signed Patient: Moises Honeycutt MR#: [id number] : 1985 Acct:[id number] Age/Sex: 39 / M ADM Date: 08/25/24 Loc: HO.MRI Attending Dr: Anibal Dawson MD Ordering Physician: Anibal Dawson MD Date of Service: 08/25/24 Procedure(s): MR head/brain wo con Accession Number(s): [id number] cc: Fernando Celestin MD; Anibal Dawson MD EXAMINATION: MR BRAIN WITHOUT CONTRAST CLINICAL [...] Man MD in OV> 08/27/24 0804 DD/ TD/TT: 08/25/24 1009 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XR shoulder RT min 2V Reviewed date:09/25/2024 05:11:30 PM Interpretation: Performing Lab: Notes/Report: [address] [address] XRay Report Signed Patient: Norm Honeycutt MR#: [id number] : 1985 Acct:[id number] Age/Sex: 39 / M ADM Date: 09/25/24 Loc: [facility] Attending Dr: Deepa Mercado NP Ordering Physician: Deepa Mercado NP Date of Service: 09/25/24 Procedure(s): XR shoulder RT min 2V Accession Number(s): [id number] cc: Fernando Celestin MD; Deepa Mercado NP 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 FINDINGS: Four views of the [facility] shoulder are submitted. Osseous mineralization is normal. 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XR thoracic spine 3V Reviewed date:09/25/2024 05:03:56 PM Interpretation: Performing Lab: Notes/Report: [address] [address] XRay Report Signed Patient: Norm Honeycutt MR#: [id number] : 1985 Acct:[id number] Age/Sex: 39 / M ADM Date: 09/25/24 Loc: HO.XRAY Attending Dr: Deepa Mercado NP Ordering Physician: Deepa Mercado NP Date of Service: 09/25/24 Procedure(s): XR thoracic spine 3V Accession Number(s): [id number] cc: Fernando Celestin MD; Deepa Mercado NP [...] by Phillip Webb MD in OV> 09/25/24 154 DD/ 24 TD/TT: 09/25/241534 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[address] [address] XRay Report Signed Patient: Moises Honeycutt MR#: [id number] : 1985 Acct:[id number] Age/Sex: 39 / M ADM Date: 09/25/24 Loc: HO.XRAY Attending Dr: Deepa Mercado NP Ordering Physician: Deepa Mercado NP Date of Service: 09/25/24 Procedure(s): XR tho racic spine 3V Accession Number(s): [id number] cc: Fernando Celestin MD; Deepa Mercado NP [...] 09/25/24 1543 DD/ 1525 TD/TT: 09/25/24 1535 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Ree Morris Reviewed date:01/11/2025 11:28:46 AM Interpretation: Performing Lab:[facility], [address] [place] [phone] Notes/Report: Ree Morris See Note Specimen held untested for 24 hours; Call to request Chemistry testing. Complete Blood Count Auto Di ff Reviewed date:01/11/2025 12:45:47 PM Interpretation: Performing Lab:[facility], [address] [place] [phone] Notes/Report: White Blood Count 3.7 4.8-10.8 X10*3/uL [...] NRBC Abs Auto 0.000 0.0-0.012 X10*3/uL Comprehensive [place]. Panel Fa st Reviewed date:01/11/2025 04:26:16 PM Interpretation: Performing Lab:[facility], [address] [place] [phone] Notes/Report: Sodium 143 135-145 mmol/L Potassium 4.1 [...] Panel Reviewed date:01/11/2025 12:07:36 PM Interpretation: Performing Lab:[address] [address] Notes/Report: Triglycerides 52 <150 mg/dL Desirable Triglyceride: [...] low results in patients with liver disease. Occult Blood, Stool, Guaiac Reviewed date:01/18/2025 11:38:29 AM Interpretation:Negative Performing Lab: Notes/Report: Negative Occult Blood, Stool, Guaiac Neg Complete Blood Count Auto Di ff Reviewed date:01/18/2025 12:29:05 PM Interpretation: Performing Lab:[facility], [address] [place] [phone] Notes/Report: White Blood Count 5.3 4.8-10.8 X10*3/uL [...] 0.0-0.2 /100WBC Neutrophils Absolute Auto 2.7 2.0-8.3 x10*3/uL Imm Gran Abs Auto 0.01 0.00-0.03 X10*3/uL Lymphocytes Absolute Auto 1.9 1.2-4.9 X10*3/uL Monocytes Absolute Auto 0.6 0.1-1.2 X10*3/uL Eosinophils Absolute Auto 0.1 0.0-0.4 X10*3/uL Basophils Absolute Auto 0.1 0.0-0.2 X10*3/uL NRBC Abs Auto 0.000 0.0-0.012 X10*3/uL UA ClnCatch+Micro w/rflx Cul t Reviewed date:01/18/2025 12:28:46 PM Interpretation: Performing Lab:[facility], [address] [place] [phone] Notes/Report: Urine, Clean Catch Color Urine Yellow Appearance Urine Clear PH 5.5 5.0-9.0 Glucose Urine UA Negative Negative mg/dL Urine Blood Negative Negative Specific [place] - Urine >= 1.030 1.005-1.025 Urine Protein Negative Neg-Trace mg/dL Urine Ketones Negative Negative mg/dL Nitrite Urine Negative Negative Leukocyte Esterase Urine Negative Negative RBC Urine 0-2 0-2 /HPF WBC Urine 0-5 0-5 /HPF Squamous Epithelial Cell Urine 0-2 0-2 /HPF Bacteria Urine None Seen None Seen Hyaline Casts Urine 0-2 0-2 /LPF Reason For Referral Reason shoulder injury Diagnosis 1 Shoulder injury (S49 .90XA) Referral Organization Fernando Celestin MD Referring Provider First Name Fernando Referring Provider Last Name Fawad Referring Provider Speciality Internal M edicine Referred Provider [facility] Referred Provider Specialty Physical [...] Muriel Monaco 0 08/21/2024 11:54:28 AM >info faxed, Muriel Monaco 09/18/2024 08:57:11 AM >was told patient is aware of appt Referral Priority Routine Referral Appointment Date 11/19/2024 Medications Medication SIG (Take, Route, Frequency, Duration) Notes Start Date End Date Status Tylenol 325 MG 1 tablet as needed Orally every 6 hrs Active fluvoxaMINE Maleate 100 MG 1 tablet at bedtime Orally Once a day Active KlonoPIN 1 MG 1 tablet Orally once [...] Once a day for 30 day(s) Not-Taking Nystatin 793741 UNIT/GM 1 application Ex ternally Twice a [...] day for 14 days 02/22/2014 Not-Taki ng Immunizations Vaccine Route Administration Date Status Comme [...] Problem Status W/U Status Risk Notes Problem 3473765 Obsessive-compul sive personality disorder (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) Active confirmed Problem 12774831 Dysthymia (F34.1) Active confirmed Problem 50408810 Other irritable bowel syndrome (K58.8) Active confirmed Vital Signs Blood pressure diastolic 60 mm Hg 01/18/2025 sarah ght is down 4 pounds since 08-21-24 Height 70 in 01/18/2025 weight is down 4 pounds since 08-21-24 Blood pressure systolic 108 mm Hg 01/18/2025 weig ht is down 4 pounds since 08-21-24 Weight 150 lbs 01/18/2025 weight is down 4 pounds since 08-21-24 BMI 21.52 kg/m2 01/18/2025 weight is down 4 pounds since 08-21-24 Encounters Encounter Location Date Provider Diagnosis Fernando Celestin MD [address] [place], [place] [phone] 01/11/2025 Fernando Celestin Blood tests for routine general physical examination Z00.00 and Encounter for administration of vaccine Z23 Fernando Celestin MD [address] [place] [phone] 01/18/2025 Fernando Celestin Adult general medica l exam Z00.00 ; Dysthymia F34.1 ; Shoulder pain M25.519 ; Colon cancer screening Z12.11 and Depression screen Z13.31 Fernando Celestin MD [address] [place] [phone] 08/21/2024 Fernando Celestin Other irritable kareem l syndrome K58.8 and Shoulder injury S49.90XA Assessments Encounter Date Diagnosis (ICD Code) Assessment Notes Treatment Notes Treatment Clinical Notes Section Notes 01/11/2025 Blood tests for routine general physical examination (ICD-10 - Z00.00) 01/11/2025 Encounter for administration of vaccine (ICD-10 - Z23) 01/18/2025 Adult general medical exam (ICD-10 - Z00.00) labs reviewed and discussed with patient 01/18/2025 Dysthymia (ICD-10 - F34.1) stable, will continue current regiment 08/21/2024 Other irritable bowel syndrome (ICD-10 - K58.8) referal to gastroenterology in [facility] gastro[facility] 08/21/2024 Shoulder injury (ICD-10 - S49.90XA) referral to sports medicine at [facility] [place] 01/18/2025 Shoulder pain (ICD-10 - M25.519) patient verbalized understabding of medication and directions for use 01/18/2025 Colon cancer screening (ICD-10 - Z12.11) guaiac negative 01/18/2025 Depression screen (ICD-10 - Z13.31) negative screen Plan Of Treatment Pending Test Test Name Order Date X ray : Hand, right 12/15/2010 UA ClnCatch+Micro w/rflx Cult 01/11/2025 Next Appt Details Provider Name:Fernando cardoso, 01/14/2026 07:45:00 AM, [address] [facility], Suite [facility], [place], [place], [phone], Provider Name:Fernando cardoso, 01/21/2026 10:30:00 AM, [address], [address], [place], [place], [phone], Insurance Providers Payer Name Payer Address Payer Phone Subscriber Number Group Number Insured Name Patient Relationship to Insured Coverage Start Date Coverage End Date [facility] [address] [address] [place] [address] [id number] Norm Honeycutt Self - patient is the insured
--- OUTSIDE RECORDS SUMMARY | 2025-01-18 13:18 | XMS_ITS | Clinical Summary ---
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 CONNECTORCARE [facility] NON [place]UST[place] PCP [facility] CONNE[employer]CARE [employer] NON NSPG PCP [facility] [employer] NON NSPG PCP S[facility] [employer] NON NSPG PCP S[employer] NON NSPG PCP [facility] Care Teams Cash On Delivery Clerk Relationship Specialty Start Date End Date Pcp, Unknown PCP - General 10/08/21 Additional Source Comments The information contained in this document represents components of the legal health record. It is not the complete legal health record.[facility]
== END 2025-01-18 11:05 | disposition home or self-care (01) ==
LOC: HO.LNP 11:04
PROVIDERS: Visit Provider Internal Medicine
DX: Z00.00 Encounter for general adult medical examination without abnormal findings (principal)
CPT/HCPCS: 81001; 85025